=== PATIENT | female | born 1965 | race American Indian/Alaskan Native ===

== ENCOUNTER 2016-08-28 23:38 | Emergency (ER) | payer MEDICAID, OTHER ==
--- NOTE | 2016-08-29 00:13 | Emergency Department Report ---
ED General Adult HPI - General Chief complaint: Pain General Stated complaint: LEG EDEMA Time Seen by Provider: 08/28/16 23:53 Source: patient, EMS (ems notes not available at time of chart dictation), RN notes reviewed Limitations: Physical Limitation - History of Present Illness Initial comments: This is a 51-year-old female. She is previously unknown to me. Her primary care doctor is in [place]. She reports that she is visiting from [place]. She reports a history of breast cancer, status post bilateral mastectomy with clean margins, did not have chemotherapy or radiation. Reports a history of diabetes, pulmonary embolus, DVT. Was on systemic anticoagulation for one year. The patient presents to the ER complaining of chest pain. She also complains of bilateral lower extremity pain, redness and swelling. The chest pain is central. It does not radiate to the back, arms or neck. It is associated with shortness of breath, nausea, diaphoresis, no vomiting. It started 2 hours prior to arrival. The patient also complains of bilateral lower extremity redness, pain and swelling. The pain is sharp. It increases with palpation. It decreases with rest. No fevers. No chills. Positive anxiety. -: Gradual Location: chest, left, right, lower extremity Quality: aching Consistency: constant Improves with: rest Worsens with: movement Associated Symptoms: chest pain, loss of appetite, nausea/vomiting, shortness of breath, weakness - Related Data Home Medications Medication Instructions Recorded Confirmed Last Taken Atenolol [Tenormin] 50 mg PO BID 08/29/16 08/29/16 Unknown Budesoni/Formoterol 80-4.5(Nf) 2 puff IH BID 08/29/16 08/29/16 Unknown [Symbicort 80-4.5 (Nf)] Furosemide [Lasix TAB] 40 mg PO QDAY 08/29/16 08/29/16 Unknown Hydroxyzine HCl 25 mg PO QHS 08/29/16 08/29/16 Unknown Insulin Lispro [HumaLOG VIAL] See Protocol SQ PC 08/29/16 08/29/16 Unknown LORazepam [Ativan] 2 mg PO TID 08/29/16 08/29/16 Unknown Losartan [Cozaar] 100 mg PO DAILY 08/29/16 08/29/16 Unknown Tiotropium [Spiriva] 18 mcg IH QDAY 08/29/16 08/29/16 Unknown glipiZIDE 1 PO DAILY 08/29/16 Unknown Previous Rx's Medication Instructions Recorded Last Taken Type Clindamycin [Clindamycin CAP] 300 mg PO Q6H #40 capsule 08/29/16 Unknown Rx Enoxaparin [Lovenox] 120 mg SQ Q12HR #20 syringe 08/29/16 Unknown Rx Allergies Allergy/AdvReac Type Severity Reaction Status Date / Time Penicillins Allergy Intermediate Itching Verified 08/29/16 01:19 erythromycin base Allergy Itching Verified 08/29/16 03:37 metoclopramide HCl AdvReac Unknown Verified 08/29/16 03:37 [From Reglan] ondansetron HCl AdvReac Unknown Verified 08/29/16 03:37 [From Zofran (as hydrochloride)] prochlorperazine AdvReac Unknown Verified 08/29/16 03:37 [From Compazine] prochlorperazine edisylate AdvReac Unknown Verified 08/29/16 03:37 [From Compazine] prochlorperazine maleate AdvReac Unknown Verified 08/29/16 03:37 [From Compazine] rivaroxaban [From Xarelto] AdvReac Unknown Verified 08/29/16 03:37 ED Review of Systems ROS: Stated complaint: LEG EDEMA Other details as noted in HPI Constitutional: malaise. denies: fever Eyes: denies: vision change ENT: denies: epistaxis Respiratory: see HPI Cardiovascular: chest pain Gastrointestinal: as per HPI Genitourinary: as per HPI Musculoskeletal: arthralgia, myalgia Skin: as per HPI Neurological: weakness Psychiatric: anxiety ED Past Medical Hx - Medications Home Medications: Home Medications Medication Instructions Recorded Confirmed Last Taken Type Atenolol [Tenormin] 50 mg PO BID 08/29/16 08/29/16 Unknown History Budesoni/Formoterol 80-4.5(Nf) 2 puff IH BID 08/29/16 08/29/16 Unknown History [Symbicort 80-4.5 (Nf)] Clindamycin [Clindamycin CAP] 300 mg PO Q6H #40 capsule 08/29/16 Unknown Rx Enoxaparin [Lovenox] 120 mg SQ Q12HR #20 syringe 08/29/16 Unknown Rx Furosemide [Lasix TAB] 40 mg PO QDAY 08/29/16 08/29/16 Unknown History Hydroxyzine HCl 25 mg PO QHS 08/29/16 08/29/16 Unknown History Insulin Lispro [HumaLOG VIAL] See Protocol SQ PC 08/29/16 08/29/16 Unknown History LORazepam [Ativan] 2 mg PO TID 08/29/16 08/29/16 Unknown History Losartan [Cozaar] 100 mg PO DAILY 08/29/16 08/29/16 Unknown History Tiotropium [Spiriva] 18 mcg IH QDAY 08/29/16 08/29/16 Unknown History glipiZIDE 1 PO DAILY 08/29/16 Unknown History ED Physical Exam - General Limitations: Physical Limitation, Other (bilateral lower extremities are red. Redness is more prominent in the left lower extremity. It is tender. There is a ascending erythema noted on the right medial lower extremity. The compartments are soft. 2+ pulses noted in 4 extremities) General appearance: alert, anxious, obese - Head Head exam: Present: atraumatic, normocephalic - Eye Eye exam: Present: normal appearance, EOMI. Absent: nystagmus - ENT ENT exam: Present: normal exam, normal orophraynx, mucous membranes moist, normal external ear exam - Neck Neck exam: Present: normal inspection, full ROM. Absent: tenderness, meningismus - Respiratory Respiratory exam: Present: normal lung sounds bilaterally, chest wall tenderness. Absent: respiratory distress, wheezes, rales, rhonchi, stridor - Cardiovascular Cardiovascular Exam: Present: regular rate, normal rhythm, normal heart sounds. Absent: bradycardia, tachycardia, irregular rhythm, systolic murmur, diastolic murmur, rubs, gallop - GI/Abdominal GI/Abdominal exam: Present: soft, normal bowel sounds. Absent: distended, tenderness, guarding, rebound, rigid, pulsatile mass - Extremities Exam Extremities exam: Present: normal inspection, tenderness, normal capillary refill, pedal edema, calf tenderness - Back Exam Back exam: Present: normal inspection, full ROM. Absent: tenderness, CVA tenderness (R), CVA tenderness (L), muscle spasm, paraspinal tenderness, vertebral tenderness - Neurological Exam Neurological exam: Present: alert, oriented X3, other (Extraocular movements intact. Tongue midline. No facial droop. Facial sensation intact to light touch in the V1, V2, V3 distribution bilaterally. 5 and 5 strength in 4 extremities.. Sensation is intact to light touch in 4 extremities.). Absent: motor sensory deficit - Psychiatric Psychiatric exam: Present: anxious - Skin Skin exam: Present: warm, rash, erythema ED Course Vital Signs 08/28/16 08/28/16 08/28/16 23:38 23:41 23:45 Temperature 97.8 F Pulse Rate 98 H Respiratory 14 16 Rate Blood Pressure 114/63 Blood Pressure 114/63 [Right] O2 Sat by Pulse 100 100 98 Oximetry 08/29/16 08/29/16 08/29/16 00:00 00:30 00:50 Temperature Pulse Rate Respiratory 15 18 16 Rate Blood Pressure 114/63 Blood Pressure [Right] O2 Sat by Pulse 100 100 Oximetry 08/29/16 08/29/16 08/29/16 01:00 01:16 01:25 Temperature Pulse Rate 108 H 108 H Respiratory 19 26 H Rate Blood Pressure 114/63 114/63 114/63 Blood Pressure [Right] O2 Sat by Pulse 100 Oximetry 08/29/16 08/29/16 08/29/16 01:30 01:45 02:00 Temperature Pulse Rate 112 H 109 H Respiratory 21 38 H 24 Rate Blood Pressure 107/48 122/70 114/73 Blood Pressure [Right] O2 Sat by Pulse 100 100 100 Oximetry 08/29/16 08/29/16 08/29/16 02:15 02:30 02:45 Temperature Pulse Rate 109 H Respiratory 30 H 27 H 20 Rate Blood Pressure 108/75 114/70 109/72 Blood Pressure [Right] O2 Sat by Pulse 100 98 99 Oximetry 08/29/16 08/29/16 08/29/16 03:00 03:15 03:30 Temperature Pulse Rate 109 H Respiratory 16 26 H Rate Blood Pressure 108/71 117/75 111/75 Blood Pressure [Right] O2 Sat by Pulse 99 100 97 Oximetry 08/29/16 08/29/16 08/29/16 03:45 04:00 04:46 Temperature Pulse Rate 110 H 115 H 114 H Respiratory 25 H 28 H 16 Rate Blood Pressure 115/77 120/84 115/77 Blood Pressure [Right] O2 Sat by Pulse 98 98 97 Oximetry 08/29/16 08/29/16 08/29/16 05:00 05:15 05:30 Temperature Pulse Rate 105 H 105 H Respiratory 24 23 18 Rate Blood Pressure 118/67 118/69 119/59 Blood Pressure [Right] O2 Sat by Pulse 96 95 94 Oximetry 08/29/16 08/29/16 05:45 06:00 Temperature Pulse Rate 103 H Respiratory 21 23 Rate Blood Pressure 126/70 126/70 Blood Pressure [Right] O2 Sat by Pulse 95 99 Oximetry - Reevaluation(s) Reevaluation #1: 08/29/16 02:22 differential diagnosis: Cellulitis, lymphangitis, DVT, pneumonia , acute coronary syndrome, pulmonary embolus Reevaluation #2: 08/29/16 05:55 CT scan of the chest is negative for pulmonary embolus. Neoplasm in the liver is suggested. I will defer to the inpatient team to further evaluate this. Reevaluation #3: 08/29/16 06:23 patient is now going to sign out AGAINST MEDICAL ADVICE. The risks of leaving, including , disability, paralysis, permanent loss of quality of life are discussed with the patient. The patient is alert and oriented 3, she exhibits decision-making capacity, and she is free from distracting injury. She is able to articulate the risks in her own words. Patient will be discharged with antibiotics, clindamycin, and Lovenox. Instructed to follow up as soon as possible, or to return to the ER after when she changes her mind. The Hospital physician is informed. The AMA conversation was witnessed by nurse HUMBERTO ANDREA - TAMIKO/Peripheral Line Neck L Time Out Performed: Yes Indications: nurses unable to establis Skin Cleansed in Sterile Fashion: Yes Size: 20 Dressing Placed: Tegaderm Patient Tolerated Procedure: well ED Medical Decision Making - Lab Data Result diagrams: 08/29/16 00:34 08/29/16 00:34 Vital Signs 08/28/16 08/28/16 08/29/16 23:38 23:41 00:00 Temperature 97.8 F Pulse Rate 98 H Respiratory 14 15 Rate Blood Pressure 114/63 Blood Pressure 114/63 [Right] O2 Sat by Pulse 100 100 100 Oximetry 08/29/16 08/29/16 08/29/16 00:30 00:50 01:00 Temperature Pulse Rate Respiratory 18 16 19 Rate Blood Pressure 114/63 114/63 Blood Pressure [Right] O2 Sat by Pulse 100 100 Oximetry 0608/29/16 08/29/16 01:16 01:25 01:30 Temperature Pulse Rate 108 H 108 H 112 H Respiratory 26 H 21 Rate Blood Pressure 114/63 114/63 107/48 Blood Pressure [Right] O2 Sat by Pulse 100 Oximetry 08/29/16 08/29/16 01:45 02:00 Temperature Pulse Rate 109 H Respiratory 38 H 24 Rate Blood Pressure 122/70 114/73 Blood Pressure [Right] O2 Sat by Pulse 100 100 Oximetry Lab Results 08/29/16 08/29/16 08/29/16 Range/Units 00:34 00:34 00:34 WBC 9.1 (4.5-11.0) K/mm3 RBC 4.61 (3.65-5.03) M/mm3 Hgb 12.0 (10.1-14.3) gm/dl Hct 36.6 (30.3-42.9) % MCV 79 (79-97) fl MCH 26 L (28-32) pg MCHC 33 (30-34) % RDW 16.1 H (13.2-15.2) % Plt Count 287 (140-440) K/mm3 Lymph % (Auto) 27.5 (13.4-35.0) % Kleberg % (Auto) 5.8 (0.0-7.3) % Eos % (Auto) 3.8 (0.0-4.3) % Baso % (Auto) 1.0 (0.0-1.8) % Lymph # 2.5 (1.2-5.4) K/mm3 Kleberg # 0.5 (0.0-0.8) K/mm3 Eos # 0.3 (0.0-0.4) K/mm3 Baso # 0.1 (0.0-0.1) K/mm3 Seg Neutrophils % 61.9 (40.0-70.0) % Seg Neutrophils # 5.6 (1.8-7.7) K/mm3 Sodium 139 (137-145) mmol/L Potassium 3.4 L (3.6-5.0) mmol/L Chloride 99.8 (98-107) mmol/L Carbon Dioxide 22 (22-30) mmol/L Anion Gap 21 mmol/L BUN 9 (7-17) mg/dL Creatinine 1.0 (0.7-1.2) mg/dL Estimated GFR > 60 ml/min BUN/Creatinine Ratio 9.00 % Glucose 200 H (65-100) mg/dL Lactic Acid 2.70 H* (0.7-2.0) mmol/L Calcium 8.8 (8.4-10.2) mg/dL Total Creatine Kinase 53 (30-135) units/L Troponin T < 0.010 (0.00-0.029) ng/mL NT-Pro-B Natriuret Pep 27.95 (0-900) pg/mL HCG, Quant (0-4) mIU/mL 08/29/16 Range/Units 00:34 WBC (4.5-11.0) K/mm3 RBC (3.65-5.03) M/mm3 Hgb (10.1-14.3) gm/dl Hct (30.3-42.9) % MCV (79-97) fl MCH (28-32) pg MCHC (30-34) % RDW (13.2-15.2) % Plt Count (140-440) K/mm3 Lymph % (Auto) (13.4-35.0) % Kleberg % (Auto) (0.0-7.3) % Eos % (Auto) (0.0-4.3) % Baso % (Auto) (0.0-1.8) % Lymph # (1.2-5.4) K/mm3 Kleberg # (0.0-0.8) K/mm3 Eos # (0.0-0.4) K/mm3 Baso # (0.0-0.1) K/mm3 Seg Neutrophils % (40.0-70.0) % Seg Neutrophils # (1.8-7.7) K/mm3 Sodium (137-145) mmol/L Potassium (3.6-5.0) mmol/L Chloride (98-107) mmol/L Carbon Dioxide (22-30) mmol/L Anion Gap mmol/L BUN (7-17) mg/dL Creatinine (0.7-1.2) mg/dL Estimated GFR ml/min BUN/Creatinine Ratio % Glucose (65-100) mg/dL Lactic Acid (0.7-2.0) mmol/L Calcium (8.4-10.2) mg/dL Total Creatine Kinase (30-135) units/L Troponin T (0.00-0.029) ng/mL NT-Pro-B Natriuret Pep (0-900) pg/mL HCG, Quant < 2 (0-4) mIU/mL - EKG Data -: EKG Interpreted by Me EKG shows normal: sinus rhythm Rate: normal - EKG Data When compared to previous EKG there are: previous EKG unavailable 08/29/16 02:25 sinus tachycardia, 107 beats per minute, normal intervals, normal axis, not consistent with STEMI, no prior EKG available. - Radiology Data Radiology results: image reviewed interpreted by me: X-ray the chest: Right lower lobe infiltrate versus atelectasis. - Medical Decision Making Differential diagnosis: Cellulitis, lymphangitis, pulmonary embolus, acute coronary syndrome assessment and plan: 51-year-old female with leg pain, swelling, redness, chest pain. She will be treated empirically for DVT with Lovenox, pulmonary embolus with Lovenox, clindamycin for possible skin soft tissue infection. Case is discussed with the Hospital physician, Dr. Dickey, who accepts the patient to her service. D-dimer is pending. Of note, there is delay in disposition secondary to the laboratory having technical issues with their instruments and prolonged Of time to result d-dimer. Critical care attestation.: If time is entered above; I have spent that time in minutes in the direct care of this critically ill patient, excluding procedure time. ED Disposition Clinical Impression: Chest pain, Leg pain Disposition: LEFT AGAINST MEDICAL ADVICE Is pt being admited?: No Does the pt Need Aspirin: Yes Condition: Undetermined Instructions: Chest Pain (ED) Prescriptions: Clindamycin [Clindamycin CAP] 300 mg PO Q6H #40 capsule Enoxaparin [Lovenox] 120 mg SQ Q12HR #20 syringe Referrals: PRIMARY CARE, [Primary Care Provider] - 3-5 Days
[2016-08-29] MEDS ORDERED: TYLENOL #3 PO ONE (00:31)
[2016-08-29] MEDS ORDERED: NITROSTAT SL ONE (00:31)
[2016-08-29] MEDS ORDERED: CLEOCIN 600 MG/50 mL 600 MG/50 ML BAG IV ONE (00:31)
[2016-08-29 00:56] LABS: Eosinophils % (Auto) 3.8 % (0.0-4.3); Hematocrit 36.6 % (30.3-42.9); Mean Corpuscular HGB Conc 33 % (30-34); Mean Corpuscular Hemoglobin 26 pg (28-32); Mean Corpuscular Volume 79 fl (79-97); Platelet Count 287 K/mm3 (140-440); Red Blood Count 4.61 M/mm3 (3.65-5.03); Red Cell Distribution Width 16.1 % (13.2-15.2); White Blood Count 9.1 K/mm3 (4.5-11.0)
[2016-08-29 01:12] LABS: Anion Gap 21 mmol/L; Blood Urea Nitrogen 9 mg/dL (7-17); Calcium 8.8 mg/dL (8.4-10.2); Carbon Dioxide 22 mmol/L (22-30); Chloride 99.8 mmol/L (98-107); Creatine Kinase 53 units/L (30-135); Glucose 200 mg/dL (65-100); Potassium 3.4 mmol/L (3.6-5.0); Sodium 139 mmol/L (137-145)
[2016-08-29] MEDS ORDERED: ATIVAN IV ONE (01:19)
[2016-08-29] MEDS ORDERED: LOVENOX SUB-Q STA (02:22)
[2016-08-29] MEDS ORDERED: BABY ASPIRIN PO ONE (02:28)
[2016-08-29 02:45] LABS: INR 0.94 (0.87-1.13)
--- NOTE | 2016-08-29 03:03 | XRay Report ---
FINAL REPORT PROCEDURE: XR CHEST 1V AP TECHNIQUE: Chest radiograph anteroposterior view. CPT 82488 HISTORY: cp COMPARISON: No prior studies are available for comparison. FINDINGS: Heart: Normal. Mediastinum/Vessels: Normal. Lungs/Pleural space: Normal. Bony thorax: No acute osseous abnormality. Life support devices: None. IMPRESSION: No acute cardiopulmonary abnormality.
[2016-08-29] MEDS: LOVENOX SUB-Q ONE ×2 (03:26→03:28)
--- NOTE | 2016-08-29 05:39 | Cat Scan Report ---
FINAL REPORT PROCEDURE: CT ANGIO CHEST TECHNIQUE: Computerized axial tomographic angiography of the chest and pulmonary arteries was performed after the IV injection of iodinated nonionic contrast. The image data was postprocessed using maximum intensity projection (MIP) and 2-dimensional multiplanar reformatted (MPR) techniques. The examination is specifically tailored to the evaluation of the pulmonary arteries per clinical request. HISTORY: Short of breath 786.09, chest pain 786.50, cp hx of pe COMPARISON: No prior studies are available for comparison. FINDINGS: Heart and pericardium: Normal. Thoracic aorta: There is no thoracic aortic aneurysm or dissection.. Pulmonary vasculature: No pulmonary embolism is identified. There is suboptimal opacification of the distal pulmonary artery branches.. Lymph nodes: No enlarged thoracic lymph nodes. Lungs: Normal. Pleural space: No effusion, thickening, or pneumothorax. Musculoskeletal structures: No significant abnormality. Upper abdominal structures: Liver is enlarged and fatty. There is a hypodense mass in the left lobe measuring 3 x 3.5 centimeters. There is displacement of surrounding vessels. Neoplasm cannot be excluded.. IMPRESSION: There is no thoracic aortic aneurysm or dissection.. No pulmonary embolism is identified. There is suboptimal opacification of the distal pulmonary artery branches.. Liver is enlarged and fatty. There is a hypodense mass in the left lobe measuring 3 x 3.5 centimeters. There is displacement of surrounding vessels. Neoplasm cannot be excluded.. .
--- NOTE | 2016-08-29 05:40 | History and Physical Report ---
History of Present Illness Date of examination: 08/29/16 History of present illness: This is a 51-year-old female. She is previously unknown to me. Her primary care doctor is in [place]. She reports that she is visiting from [place]. She reports a history of breast cancer, status post bilateral mastectomy with clean margins, did not have chemotherapy or radiation. Reports a history of diabetes, pulmonary embolus, DVT. Was on systemic anticoagulation for one year. The patient presents to the ER complaining of chest pain. She also complains of bilateral lower extremity pain, redness and swelling. The chest pain is central. It does not radiate to the back, arms or neck. It is associated with shortness of breath, nausea, diaphoresis, no vomiting. It started 2 hours prior to arrival. The patient also complains of bilateral lower extremity redness, pain and swelling. The pain is sharp. It increases with palpation. It decreases with rest. No fevers. No chills. Positive anxiety. Past medical History: h/o Past surgical History: s/p Social History: Lives with family, denies any smoking, drinking and elicit drug abuse. Family History: Significant for Review of System: Constitutional: no fever, no chills, no weight loss Ears, eyes, nose, mouth and throat: no nasal congestion, no nasal discharge, no sinus pressure, no vision change, no red eye. Neck: No neck pain or rigidity. Cardiovascular: No chest pain, no orthopnea, no palpitations, no leg swelling Respiratory: No shortness of breath, no cough, no congestion, no wheezing Gastrointestinal: no abdominal pain, no nausea, no vomiting Genitourinary : no dysuria, no hematuria Musculoskeletal: no joint swelling or muscle ache Integumentary: no rash, no pruritis Neurological: no parathesias, no numbness, no tingling Endocrine: no cold or heat intolerance, no polyuria or polydipsia Hematologic/Lymphatic: no easy bruising, no easy bleeding, no gland swelling Allergic/Immunologic: no urticaria, no angioedema. Medications and Allergies Allergies Allergy/AdvReac Type Severity Reaction Status Date / Time Penicillins Allergy Intermediate Itching Verified 08/29/16 01:19 erythromycin base Allergy Itching Verified 08/29/16 03:37 metoclopramide HCl AdvReac Unknown Verified 08/29/16 03:37 [From Reglan] ondansetron HCl AdvReac Unknown Verified 08/29/16 03:37 [From Zofran (as hydrochloride)] prochlorperazine AdvReac Unknown Verified 08/29/16 03:37 [From Compazine] prochlorperazine edisylate AdvReac Unknown Verified 08/29/16 03:37 [From Compazine] prochlorperazine maleate AdvReac Unknown Verified 08/29/16 03:37 [From Compazine] rivaroxaban [From Xarelto] AdvReac Unknown Verified 08/29/16 03:37 Home Medications Medication Instructions Recorded Confirmed Last Taken Type Atenolol [Tenormin] 50 mg PO BID 08/29/16 08/29/16 Unknown History Budesoni/Formoterol 80-4.5(Nf) 2 puff IH BID 08/29/16 08/29/16 Unknown History [Symbicort 80-4.5 (Nf)] Furosemide [Lasix TAB] 40 mg PO QDAY 08/29/16 08/29/16 Unknown History Hydroxyzine HCl 25 mg PO QHS 08/29/16 08/29/16 Unknown History Insulin Lispro [HumaLOG VIAL] See Protocol SQ PC 08/29/16 08/29/16 Unknown History LORazepam [Ativan] 2 mg PO TID 08/29/16 08/29/16 Unknown History Losartan [Cozaar] 100 mg PO DAILY 08/29/16 08/29/16 Unknown History Tiotropium [Spiriva] 18 mcg IH QDAY 08/29/16 08/29/16 Unknown History glipiZIDE 1 PO DAILY 08/29/16 Unknown History Active Meds: Active Medications Atenolol (Tenormin) 50 mg PO BID MOIZ Furosemide (Lasix) 40 mg PO QDAY MOIZ Hydroxyzine HCl (Atarax) 25 mg PO QHS MOIZ Lorazepam (Ativan) 2 mg PO TID MOIZ Miscellaneous Medication (Budesoni/Formoterol 80-4.5(Nf)) 2 puff IH BID MOIZ Miscellaneous Medication (Losartan [Cozaar]) 100 mg PO DAILY MOIZ Tiotropium Empire (Spiriva) puff IH QDAY MOIZ Exam - Physical Exam Narrative exam: GENERAL: This is well-developed well-nourished lying on bed appeared to be in no discomfort. HEENT: Normocephalic. Atraumatic. Extraocular motions are intact. No conjunctival congestion or icterus. Patient has moist mucous membranes. External auditory canal and nares patent bilaterally. NECK: Supple. Trachea midline. No JVD, thyromagaly or lymphadenopathy. CHEST/LUNGS: Clear to auscultated bilaterally. There is no respiratory distress noted, breathing nonlabored. No wheezes crackles or rhonchi. HEART/CARDIOVASCULAR: Regular in rate and rhythm. PMI at the apex. There is no gallop rub or murmur. ABDOMEN: Abdomen is soft, nontender. Patient has normal bowel sounds. There is no abdominal distention. No organomagaly or rigidity. SKIN: There is no rash, no erythrema. There is no diaphoresis. Warm and dry. NEUROLOGY: The patient is awake, alert, and oriented. The patient is cooperative. The patient has normal speech. No focal motor deficit. MUSCULOSKELETAL: No joint effusion or tenderness. Muscle strength equal bilaterally. No muscle wasting. EXTRIMITY: No edema, cyanosis or clubbing. PSYCH: No depression or anxiety noted. Cooperative. - Constitutional Vitals: Temp Pulse Resp BP Pulse Ox 97.8 F 105 H 24 118/67 96 08/28/16 23:41 08/29/16 05:00 08/29/16 05:00 08/29/16 05:00 08/29/16 05:00 Results - Labs CBC & Chem 7: 08/29/16 00:34 08/29/16 00:34 Labs: Abnormal lab results 08/29/16 08/29/16 08/29/16 Range/Units 00:34 00:34 00:34 MCH 26 L (28-32) pg RDW 16.1 H (13.2-15.2) % D-Dimer 944.14 H (0-234) ng/mlDDU Potassium 3.4 L (3.6-5.0) mmol/L Glucose 200 H (65-100) mg/dL Lactic Acid (0.7-2.0) mmol/L 08/29/16 Range/Units 00:34 MCH (28-32) pg RDW (13.2-15.2) % D-Dimer (0-234) ng/mlDDU Potassium (3.6-5.0) mmol/L Glucose (65-100) mg/dL Lactic Acid 2.70 H* (0.7-2.0) mmol/L - Imaging and Cardiology CT scan - chest: pending
[2016-08-29 05:54] VITALS: BP 126/70
[2016-08-29] MEDS ORDERED: CLEOCIN 600 MG/50 mL 600 MG/50 ML BAG IV SCH (06:00)
--- NOTE | 2016-08-29 06:42 | Admit Criteria Form ---
Admission Criteria Documentation: CARDIOLOGY GRG Clinical Indications for Admission to Inpatient Care ( Place 'X' for any and all applicable criteria): Hospital admission is needed for appropriate care of the patient because of ANY ONE of the following (1): [ ] I. Hemodynamic instability as indicated by ALL of the following (1)(2)(3) (4)(5) [ ]a) Vital signs or other findings not as expected for chronic patient condition or baseline [ ]b) Instability indicated by ANY ONE of the following: [ ]i) Hypotension [ ]ii) Symptomatic Tachycardia unresponsive to treatment ( e.g., analgesia, fluids, sedation as indicated) [ ]iii) Inadequate perfusion indicated by ANY ONE of the following: [ ] 1) Lactic acidosis (> 2 mmol/L) [ ] 2) New abnormal capillary refill (> 3 seconds) [ ] 3) Reduced urine output [ ] 4) New altered mental status [ ]iv) Orthostatic vital sign changes unresponsive to treatment (e.g., fluids) [ ]v) IV inotropic or vasopressor medication required to maintain adequate blood pressure or perfusion [ ] II. Severe heart failure as indicated by ANY ONE of the following(17)(18) [ ]a) Respiratory distress [ ]b) Hypotension [ ]c) Anasarca (refractory to outpatient therapy) [ ]d) Cardiac arrhythmias of immediate concern [ ]e) Myocardial ischemia [ ] III. Cardiac arrhythmias or findings of immediate concern indicated by ANY ONE of the following (19)(20): [ ] a) Heart rhythms that are inherently dangerous or unstable indicated by ANY ONE of the following (21)(22)(23): [ ] i) Resuscitated ventricular fibrillation or cardiac arrest [ ] ii) Ventricular escape rhythm [ ] iii) Sustained ventricular tachycardia (30 seconds or more of ventricular rhythm at greater than 100 beats per minute) [ ] iv) Nonsustained ventricular tachycardia and ANY ONE of the following: [ ] 1) Suspected cardiac ischemia as cause or consequence of ventricular tachycardia [ ] 2) In setting of acute myocarditis [ ] b) Unstable cardiac conduction defects indicated by ANY ONE of the following(23)(24)(25) [ ] i) Type II second-degree atrioventricular block [ ]ii) Third-degree atrioventricular block [ ]iii) New-onset left bundle branch block with suspected myocardial ischemia [ ]c) Any heart rhythm and ANY ONE of the following (21)(22)(26)(27) (28) [ ] i) Continuous long-term ECG monitoring needed (e.g., initiation of drug requiring monitoring for more than 24 hours) [ ] ii) Patient has automatic implanted cardioverter defibrillator that is repeatedly firing, malfunctioning, or in need of immediate adjustment of settings beyond the scope of ambulatory or observation care [ ]d) Heart rhythms of concern due to ANY ONE of the following: [ ] i) Hypotension [ ] ii) Respiratory distress [ ] iii) Association with other significant symptoms (e.g., bradycardia with syncope or ongoing dizziness, supraventricular tachycardia with chest pain (14)(15)(17) [ ] IV. Monitoring for cardiac contusion beyond the scope of observation care needed [A](30)(31)(32) [ ] V. Surgical or device complication (e.g., valve replacement complication , pacemaker dysfunction) (35)(41)(44)(45)(46) [ ] . Inpatient palliative care needed. [B](49) Also use Inpatient Palliative Care Criteria [ ] VII. Nonbacterial thrombotic (marantic) endocarditis (36)(43)(47)(48) [X ] VIII. Cardiology condition, symptom, or finding for which emergency and observation care has failed or are not considered appropriate. [ ] IX. Acute valvular disease requiring inpatient as indicated by ANY ONE of the following (41) [ ]a) Acute valvular regurgitation (42) [ ]b) Noninfectious valvulitis (43) [ ]c) Obstructive valve thrombosis [ ]d) Paravalvular leak [ ]e) Other significant valvular disorder remaining after emergency or observation level of care (as appropriate) [ ]X. Pericardial disease requiring inpatient treatment as indicated by ANY ONE of the following (33)(34)(35)(36)(37) [ ]a) Suspected tamponade (38)(39)(40) [ ]b) Hemopericardium [ ]c) Other significant pericardial disorder remaining after emergency or observation level of care (as appropriate) [ ] XI. Cardiac ischemia beyond scope of emergency and observation care. [ ] XII. Hypertension requiring inpatient treatment as indicated by ANY ONE of the following (6)(7)(8) [ ]a) SBP greater than 220 mm Hg or DBP greater than 120 mmHg despite treatment [ ]b) SBP greater than 140 mm Hg or DBP greater than 100 mm Hg with evidence of acute end organ damage as indicated by ANY ONE of the following [ ] i) Altered mental status [ ] ii) Acute renal failure as indicated by new onset of ANY ONE of the following (9)(10)(11)(12)(13) [ ]1) 3-fold rise in serum creatinine from baseline [ ]2) Serum creatinine greater than 4 mg/dL ( 354 micromoles/L) with acute rise greater than 0.5 mg/dL (44.2 micromoles/L) [ ]3) Reduction of more than 75% in estimated glomerular filtration rate from baseline [ ]4) Estimated glomerular filtration rate less than 35 mL/min/1.73m2 (0.59 mL/sec/1.73m2) in child up to 18 years of age [ ]5) Cessation of urine output indicated by ALL of the following [ ]A. Adequate volume status [ ]B. Inadequate urine output as indicated by ANY ONE of the following [ ]a. Urine output less than 0.3 mL/kg/hr for 24 hours [ ]b. Anuria (urine output less than 0.1 mL/kg/hr) for 12 hours [ ] iii) Aortic dissection [ ] iv) Myocardial Ischemia [ ] v) Left ventricular heart failure [ ]vi) Retinal Hemorrhage [ ]vii) Other significant finding [ ]c) Hypertension in child requiring inpatient treatment as indicated by ALL of the following(14)(15)(16) [ ] i) Outpatient treatment not effective, not available, or not appropriate [ ]ii) SBP or DBP greater than 95th percentile for age [ ]iii) Evidence of acute end organ damage as indicated by ANY ONE of the following [ ]1) Altered mental status [ ]2) Acute renal failure as indicated by new onset of ANY ONE of the following(9)(10)(11)(12)(13) [ ]A. 3-fold rise in serum creatinine from baseline [ ]B. Serum creatinine greater than 4 mg/dL (354 micromoles/L) with acute rise greater than 0.5 mg/dL (44.2 micromoles/L) [ ]C. Reduction of more than 75% in estimated glomerular filtration rate from baseline [ ]D. Estimated glomerular filtration rate less than 35 mL/min/1.73m2 (0.59 mL/sec/1.73m2) in child up to 18 years of age [ ]E. Cessation of urine output indicated by ALL of the following [ ]a. Adequate volume status [ ]b. Inadequate urine output as indicated by ANY ONE of the following [ ]i) Urine output less than 0.3 mL/kg/hr for 24 hours [ ]ii) Anuria ( urine output less than 0.1 mL/kg/hr) for 12 hours [ ]3) Severe headache [ ]4) Visual disturbance [ ]5) Retinal hemorrhage [ ]6) Other significant finding [ ]XIII. Complications of transplanted heart indicated by ANY ONE of the following(61): [ ]a) Acute graft rejection requiring inpatient management (eg, intravenous immunosuppression)(62)(63) [ ]b) Acute graft heart failure indicated by ANY ONE of the following(64): [ ]i) Hemodynamic instability [ ]ii) Cardiac arrhythmias of immediate concern [ ]iii) Pulmonary edema that is very severe (eg, mechanical ventilation needed, imminent or likely, need for 100% oxygen to keep oxygen saturation above 90%) [ ]iv) Pulmonary edema that is persistent as indicated by ALL of the following: [ ]1) New need for oxygen therapy to keep oxygen saturation above 90% (or increased FiO2 need from baseline) [ ]2) Has not improved sufficiently with emergency department or observation care IV diuretics or other heart failure treatments[E] [ ]v) Altered mental status that is severe or persistent [ ]vi) Increased creatinine (new on laboratory test) with reduction of more than 50% in estimated glomerular filtration rate from baseline [ ]vii) Progressively (ongoing) rising creatinine (known from past laboratory test) with reduction of more than 25% in estimated glomerular filtration rate from baseline [ ]viii) Acute renal failure [ ]ix) Acute peripheral ischemia (eg, examination shows pulseless, cool, mottled, or cyanotic extremity) [ ]x) Pulmonary artery catheter monitoring needed [ ]xi) Other sign or symptom of heart failure requiring inpatient treatment (ie, too severe or not responsive to outpatient and observation care treatment) [ ]c) Infection requiring inpatient management (eg, Hemodynamic instability, need for intravenous antimicrobial treatment)(66)(67)(68)(69)(70) [ ]d) Cardiac allograft vasculopathy requiring inpatient management ( eg evidence of cardiac ischemia)(71) [ ]e) Other complication of transplanted heart (eg, stroke, severe pulmonary hypertension, severe valvular dysfunction) requiring inpatient management(72) The original [facility] [employer] content created by [facility] has been revised. The portions of the content which have been revised are identified through the use of italic text or in bold, and [facility] has neither reviewed nor approved the modified material. All other unmodified content is copyright [facility] [employer]. Please see references footnoted in the original [facility] [employer] edition 2016 Admission Criteria Met: Yes
[2016-08-29] MEDS ORDERED: BROVANA NEBU IH SCH (08:00)
[2016-08-29] MEDS ORDERED: ATIVAN PO SCH (08:00)
[2016-08-29] MEDS ORDERED: PULMICORT IH SCH (08:00)
[2016-08-29] MEDS ORDERED: NON-FORMULARY (Budesoni/Formoterol 80-4.5(Nf) 2 PUFF) IH SCH (10:00)
[2016-08-29] MEDS ORDERED: COZAAR PO SCH (10:00)
[2016-08-29] MEDS ORDERED: LASIX PO SCH (10:00)
[2016-08-29] MEDS ORDERED: TENORMIN PO SCH (10:00)
[2016-08-29] MEDS ORDERED: SPIRIVA IH SCH (10:00)
[2016-08-29] MEDS ORDERED: LOVENOX SUB-Q SCH (22:00)
[2016-08-29] MEDS ORDERED: ATARAX PO SCH (22:00)
== END 2016-08-29 06:15 | disposition left against medical advice (07) ==
LOC: ED 23:38 → UNDOADMIN 08-29 05:30 → 4A 08-29 05:30 → ED 08-29 06:15
DX: M79.604 Pain in right leg (principal); M79.605 Pain in left leg; R07.9 Chest pain, unspecified; Z88.0 Allergy status to penicillin; Z88.8 Allergy status to other drugs, medicaments and biological substances
CPT/HCPCS: 36415; 36569; 71010; 71275; 80048; 82140; 82550; 83880; 84484; 84702; 85025; 85379; 85610; 87040; 93005; 93010; 96365; 96372; 96375; 99285; J1650; J2060; Q9967

== ENCOUNTER 2018-10-30 20:08 | Emergency (ER) | payer MEDICAID | END 2018-10-30 20:35 | disposition left against medical advice (07) | LOC: ED 20:08 | DX: R42 Dizziness and giddiness (principal); J45.909 Unspecified asthma, uncomplicated; Z53.21 Procedure and treatment not carried out due to patient leaving prior to being seen by health care provider ==

== ENCOUNTER 2018-11-01 22:55 | Emergency (ER) | payer MEDICAID ==
[2018-11-01] MEDS ORDERED: MYLICON PO ONE (23:33)
[2018-11-01] MEDS ORDERED: CEPHULAC PO ONE (23:34)
--- NOTE | 2018-11-02 00:10 | Emergency Department Report ---
HPI - General Chief Complaint: Syncope Time Seen by Provider: 11/01/18 23:08 - HPI HPI: Room 22 The patient is a 53-year-old female presenting with chief complaint of syncope. The patient states she has finished using the commode her clothes back on and stood up which began feeling lightheaded, had palpitations and shortness of breath. The patient's station and has syncopal episode on the memory is waking up on the floor with her nephew standing over her. There is no reported seizure activity. Patient states she still feels lightheaded currently. Patient denied having chest pain. Location: [See above] Duration: [See above] Quality: [See above] Severity: [See above] Modifying factors: [see above] Context: [see above] Mode of transportation: [not driving] ED Past Medical Hx - Past Medical History Previous Medical History?: Yes Hx Hypertension: Yes Hx Diabetes: Yes Hx Deep Vein Thrombosis: Yes Hx Pulmonary Embolism: Yes Hx Seizures: Yes (no meds) Additional medical history: Braest CA, gastropheresis, stomach ulcer - Surgical History Past Surgical History?: Yes Hx Appendectomy: Yes Additional Surgical History: bilateral mastectomy, C-sectionx 3 - Social History Smoking Status: Never Smoker Substance Use Type: None (denies illicit drug use) - Medications Home Medications: Home Medications Medication Instructions Recorded Confirmed Last Taken Type Atenolol [Tenormin] 50 mg PO BID 08/29/16 08/29/16 Unknown History Budesoni/Formoterol 80-4.5(Nf) 2 puff IH BID 08/29/16 08/29/16 Unknown History [Symbicort 80-4.5 (Nf)] Clindamycin [Clindamycin CAP] 300 mg PO Q6H #40 capsule 08/29/16 Unknown Rx Enoxaparin [Lovenox] 120 mg SQ Q12HR #20 syringe 08/29/16 Unknown Rx Furosemide [Lasix TAB] 40 mg PO QDAY 08/29/16 08/29/16 Unknown History Insulin Lispro [HumaLOG VIAL] See Protocol SQ PC 08/29/16 08/29/16 Unknown History LORazepam [Ativan] 2 mg PO TID 08/29/16 08/29/16 Unknown History Losartan [Cozaar] 100 mg PO DAILY 06/02/17 06/02/17 Unknown History Tiotropium [Spiriva] 18 mcg IH QDAY 08/29/16 08/29/16 Unknown History glipiZIDE 1 PO DAILY 08/29/16 Unknown History hydrOXYzine HCl [Hydroxyzine HCl] 25 mg PO QHS 08/29/16 08/29/16 Unknown History ED Review of Systems ROS: Stated complaint: SYNCOPE Other details as noted in HPI Constitutional: no symptoms reported Eyes: denies: eye pain ENT: denies: throat pain Respiratory: shortness of breath Cardiovascular: palpitations. denies: chest pain Endocrine: no symptoms reported Gastrointestinal: constipation Genitourinary: denies: dysuria Musculoskeletal: denies: back pain Neurological: denies: headache Physical Exam - Physical Exam Vital Signs: Vital Signs 11/01/18 23:11 Temperature 98.8 F Pulse Rate 101 H Respiratory 21 Rate Blood Pressure 172/93 [Left] O2 Sat by Pulse 97 Oximetry Physical Exam: GENERAL: The patient is well-developed well-nourished female lying on stretcher not appearing to be in acute distress. [] HEENT: Normocephalic. Atraumatic. Extraocular motions are intact. Patient has moist mucous membranes. NECK: Supple. Trachea midline CHEST/LUNGS: Clear to auscultation. There is no respiratory distress noted. HEART/CARDIOVASCULAR: Regular. There is no tachycardia. There is no gallop rub or murmur. ABDOMEN: Abdomen is soft, nontender. Patient has normal bowel sounds. There is no abdominal distention. SKIN: There is no rash. There is no edema. There is no diaphoresis. NEURO: The patient is awake, alert, and oriented. The patient is cooperative. The patient has no focal neurologic deficits. The patient has normal speech. Cranial nerves II through XII grossly intact, no drift MUSCULOSKELETAL:There is no evidence of acute injury. ED Course Vital Signs 11/01/18 23:11 Temperature 98.8 F Pulse Rate 101 H Respiratory 21 Rate Blood Pressure 172/93 [Left] O2 Sat by Pulse 97 Oximetry ED Medical Decision Making - Lab Data Result diagrams: 11/02/18 00:35 11/02/18 00:35 Laboratory Tests 11/02/18 11/02/18 11/02/18 00:35 00:35 00:35 WBC 5.8 RBC 5.73 H Hgb 14.6 H Hct 45.0 H MCV 79 MCH 26 L MCHC 32 RDW 16.5 H Plt Count 258 Lymph % (Auto) 36.3 H Monroe % (Auto) 5.9 Eos % (Auto) 1.1 Baso % (Auto) 0.8 Lymph # 2.1 Monroe # 0.1 Eos # 0.0 Baso # 0.1 Seg Neutrophils % 55.9 Seg Neutrophils # 3.2 PT 14.3 INR 1.14 H APTT 31.4 Sodium 138 Potassium 4.2 Chloride 100.6 Carbon Dioxide 22 Anion Gap 20 BUN 7 Creatinine 0.8 Estimated GFR > 60 BUN/Creatinine Ratio 9 Glucose 334 H Calcium 9.9 Magnesium 2.10 Total Bilirubin 0.20 AST 18 ALT 22 Alkaline Phosphatase 140 H Total Creatine Kinase 75 CK-MB (CK-2) 1.0 CK-MB (CK-2) Rel Index 1.3 Troponin T < 0.010 NT-Pro-B Natriuret Pep 33.56 Total Protein 8.2 Albumin 4.1 Albumin/Globulin Ratio 1.0 - EKG Data -: EKG Interpreted by Me EKG shows normal: sinus rhythm Rate: normal - EKG Data When compared to previous EKG there are: previous EKG unavailable Interpretation: other (no ischemic changes seen) - Medical Decision Making I explained to the patient my concern for her presentation and my recommendation for admission to the hospital even if her studies returned normal. Patient verbalized understanding - Differential Diagnosis syncope, dysrhythmia, PE, ICH Critical care attestation.: If time is entered above; I have spent that time in minutes in the direct care of this critically ill patient, excluding procedure time. ED Disposition Clinical Impression: Syncope Disposition: DC-07 LEFT AGAINST MED ADVICE Is pt being admited?: Yes Does the pt Need Aspirin: No Condition: Undetermined Instructions: Syncope (ED) Referrals: SHILA TURK MD [Primary Care Provider] - 3-5 Days Forms: AMA Form
[2018-11-02 01:25] LABS: INR 1.14 (0.87-1.13)
[2018-11-02 01:26] LABS: Partial Thromboplastin Time 31.4 Sec. (24.2-36.6)
[2018-11-02 01:29] VITALS: BP 171/95
[2018-11-02 01:32] LABS: Hemoglobin 14.6 gm/dl (10.1-14.3); Lymphocytes % (Auto) 36.3 % (13.4-35.0); Mean Corpuscular HGB Conc 32 % (30-34); Mean Corpuscular Volume 79 fl (79-97); Mean Platelet Volume 7.8 fl (6-12); Monocytes % (Auto) 5.9 % (0.0-7.3); Platelet Count 258 K/mm3 (140-440); Red Blood Count 5.73 M/mm3 (3.65-5.03); Red Cell Distribution Width 16.5 % (13.2-15.2)
[2018-11-02 01:33] LABS: Basophils # (Auto) 0.1 K/mm3 (0.0-0.1); Basophils % (Auto) 0.8 % (0.0-1.8); Eosinophils % (Auto) 1.1 % (0.0-4.3); Lymphocytes # (Auto) 2.1 K/mm3 (1.2-5.4); Monocytes # (Auto) 0.1 K/mm3 (0.0-0.8)
[2018-11-02 01:51] LABS: Alanine Aminotransferase 22 units/L (7-56); Albumin 4.1 g/dL (3.9-5); BUN/Creatinine Ratio 9; Blood Urea Nitrogen 7 mg/dL (7-17); Calcium 9.9 mg/dL (8.4-10.2); Hemolysis Index 13
== END 2018-11-02 01:17 | disposition left against medical advice (07) ==
LOC: ED 22:55
DX: R55 Syncope and collapse (principal); I10 Essential (primary) hypertension; E11.9 Type 2 diabetes mellitus without complications; E11.43 Type 2 diabetes mellitus with diabetic autonomic (poly)neuropathy; K31.84 Gastroparesis; Z90.49 Acquired absence of other specified parts of digestive tract; Z86.718 Personal history of other venous thrombosis and embolism; Z86.711 Personal history of pulmonary embolism; Z85.3 Personal history of malignant neoplasm of breast; Z88.8 Allergy status to other drugs, medicaments and biological substances; Z90.13 Acquired absence of bilateral breasts and nipples; Z79.899 Other long term (current) drug therapy; Z88.0 Allergy status to penicillin; Z88.1 Allergy status to other antibiotic agents
CPT/HCPCS: 36415; 80053; 82550; 82553; 83735; 83880; 84484; 85025; 85610; 85730; 93005; 93010

== ENCOUNTER 2018-11-18 18:22 | Emergency (ER) | payer SELFPAY ==
--- NOTE | 2018-11-18 18:37 | Event Note ---
ED Screening Note ED Screening Note: pt presents with substernal CP that began 2 hours ago states her sugar was 344 at home, pt states she takes lantus no V/D no SOB PMHx HTN, DM, asthma, breast cancer in remission This initial assessment/diagnostic orders/clinical plan/treatment(s) is/are subject to change based on patients health status, clinical progression and re- assessment by fellow clinical providers in the ED. Further treatment and workup at subsequent clinical providers discretion. Patient/guardian urged not to elope from the ED as their condition may be serious if not clinically assessed and managed. Initial orders include: CP protocol
--- NOTE | 2018-11-18 19:14 | XRay Report ---
CHEST 2 VIEWS INDICATION / CLINICAL INFORMATION: Chest pain. Near syncope. COMPARISON: CTA of the chest from 08/29/2016 FINDINGS: SUPPORT DEVICES: None. HEART / MEDIASTINUM: No significant abnormality. LUNGS / PLEURA: No significant pulmonary or pleural abnormality. No pneumothorax. ADDITIONAL FINDINGS: No significant additional findings. IMPRESSION: No significant abnormality of the chest. Signer Name: Orville Lyons MD Signed: 11/18/2018 7:09 PM Workstation Name: [id number]
[2018-11-18 20:01] LABS: Basophils # (Auto) 0.1 K/mm3 (0.0-0.1); Eosinophils # (Auto) 0.1 K/mm3 (0.0-0.4); Eosinophils % (Auto) 1.1 % (0.0-4.3); Hematocrit 43.1 % (30.3-42.9); Hemoglobin 14.3 gm/dl (10.1-14.3); Lymphocytes # (Auto) 2.7 K/mm3 (1.2-5.4); Lymphocytes % (Auto) 38.9 % (13.4-35.0); Mean Corpuscular HGB Conc 33 % (30-34); Mean Corpuscular Volume 78 fl (79-97); Monocytes # (Auto) 0.4 K/mm3 (0.0-0.8); Monocytes % (Auto) 5.5 % (0.0-7.3); Platelet Count 312 K/mm3 (140-440); Red Blood Count 5.52 M/mm3 (3.65-5.03); Red Cell Distribution Width 16.3 % (13.2-15.2)
[2018-11-18 20:39] LABS: Alanine Aminotransferase 27 units/L (7-56); Albumin 4.1 g/dL (3.9-5); BUN/Creatinine Ratio 13; Blood Urea Nitrogen 14 mg/dL (7-17); Calcium 9.9 mg/dL (8.4-10.2); Hemolysis Index 37
[2018-11-18] MEDS ORDERED: NACL 0.9% 1000 ML 1,000 ML IV ONE (20:52)
[2018-11-18] MEDS ORDERED: HumuLIN R IV ONE (20:53)
[2018-11-18] MEDS ORDERED: MORPHINE IV ONE (21:01)
[2018-11-18] MEDS ORDERED: ASPIRIN PO ONE (21:02)
[2018-11-18] MEDS ORDERED: ZOFRAN ONE (21:08)
[2018-11-18] MEDS ORDERED: PHENERGAN PO ONE (21:15)
[2018-11-18 23:10] VITALS: BP 158/88
--- NOTE | 2018-11-18 23:36 | Emergency Department Report ---
ED Chest Pain HPI - General Chief Complaint: Chest Pain Stated Complaint: PASSED OUT/CHEST PAIN Time Seen by Provider: 11/18/18 18:36 Source: patient Mode of arrival: Ambulatory Limitations: No Limitations - History of Present Illness Severity scale (0 -10): 0 - Related Data Home Medications Medication Instructions Recorded Confirmed Last Taken Atenolol [Tenormin] 50 mg PO BID 08/29/16 08/29/16 Unknown Budesoni/Formoterol 80-4.5(Nf) 2 puff IH BID 08/29/16 08/29/16 Unknown [Symbicort 80-4.5 (Nf)] Furosemide [Lasix TAB] 40 mg PO QDAY 08/29/16 08/29/16 Unknown Insulin Lispro [HumaLOG VIAL] See Protocol SQ PC 08/29/16 08/29/16 Unknown LORazepam [Ativan] 2 mg PO TID 08/29/16 08/29/16 Unknown Losartan [Cozaar] 100 mg PO DAILY 08/29/16 08/29/16 Unknown Tiotropium [Spiriva] 18 mcg IH QDAY 08/29/16 08/29/16 Unknown glipiZIDE 1 PO DAILY 08/29/16 Unknown hydrOXYzine HCl [Hydroxyzine HCl] 25 mg PO QHS 08/29/16 08/29/16 Unknown Previous Rx's Medication Instructions Recorded Last Taken Type Clindamycin [Clindamycin CAP] 300 mg PO Q6H #40 capsule 08/29/16 Unknown Rx Enoxaparin [Lovenox] 120 mg SQ Q12HR #20 syringe 08/29/16 Unknown Rx Allergies Allergy/AdvReac Type Severity Reaction Status Date / Time Penicillins Allergy Intermediate Itching Verified 11/18/18 18:23 erythromycin base Allergy Itching Verified 11/18/18 18:23 metoclopramide HCl AdvReac Unknown Verified 11/18/18 18:23 [From Reglan] ondansetron HCl AdvReac Unknown Verified 11/18/18 18:23 [From Zofran (as hydrochloride)] prochlorperazine AdvReac Unknown Verified 11/18/18 18:23 [From Compazine] prochlorperazine edisylate AdvReac Unknown Verified 11/18/18 18:23 [From Compazine] prochlorperazine maleate AdvReac Unknown Verified 11/18/18 18:23 [From Compazine] rivaroxaban [From Xarelto] AdvReac Unknown Verified 11/18/18 18:23 ED Review of Systems ROS: Stated complaint: PASSED OUT/CHEST PAIN Other details as noted in HPI ED Past Medical Hx - Past Medical History Hx Hypertension: Yes Hx Diabetes: Yes Hx Deep Vein Thrombosis: Yes Hx Pulmonary Embolism: Yes Hx Seizures: Yes (no meds) Additional medical history: Braest CA, gastropheresis, stomach ulcer - Surgical History Hx Appendectomy: Yes Additional Surgical History: bilateral mastectomy, C-sectionx 3 - Social History Smoking Status: Never Smoker Substance Use Type: None - Medications Home Medications: Home Medications Medication Instructions Recorded Confirmed Last Taken Type Atenolol [Tenormin] 50 mg PO BID 08/29/16 08/29/16 Unknown History Budesoni/Formoterol 80-4.5(Nf) 2 puff IH BID 08/29/16 08/29/16 Unknown History [Symbicort 80-4.5 (Nf)] Clindamycin [Clindamycin CAP] 300 mg PO Q6H #40 capsule 08/29/16 Unknown Rx Enoxaparin [Lovenox] 120 mg SQ Q12HR #20 syringe 08/29/16 Unknown Rx Furosemide [Lasix TAB] 40 mg PO QDAY 08/29/16 08/29/16 Unknown History Insulin Lispro [HumaLOG VIAL] See Protocol SQ PC 08/29/16 08/29/16 Unknown History LORazepam [Ativan] 2 mg PO TID 08/29/16 08/29/16 Unknown History Losartan [Cozaar] 100 mg PO DAILY 08/29/16 08/29/16 Unknown History Tiotropium [Spiriva] 18 mcg IH QDAY 08/29/16 08/29/16 Unknown History glipiZIDE 1 PO DAILY 08/29/16 Unknown History hydrOXYzine HCl [Hydroxyzine HCl] 25 mg PO QHS 08/29/16 08/29/16 Unknown History ED Physical Exam - General Limitations: No Limitations General appearance: alert, in no apparent distress - Head Head exam: Present: atraumatic, normocephalic - Eye Eye exam: Present: normal appearance, PERRL, EOMI Pupils: Present: normal accommodation - ENT ENT exam: Present: normal exam, normal orophraynx - Neck Neck exam: Present: normal inspection - Respiratory Respiratory exam: Present: normal lung sounds bilaterally - Cardiovascular Cardiovascular Exam: Present: regular rate, normal rhythm - GI/Abdominal GI/Abdominal exam: Present: soft, normal bowel sounds - Extremities Exam Extremities exam: Present: normal inspection - Back Exam Back exam: Present: normal inspection - Neurological Exam Neurological exam: Present: alert, oriented X3, CN II-XII intact - Skin Skin exam: Present: warm ED Course Vital Signs 11/18/18 11/18/18 11/18/18 18:36 21:28 21:29 Temperature 98.8 F Pulse Rate 107 H 99 H Respiratory 16 18 18 Rate Blood Pressure 179/94 156/96 [Left] O2 Sat by Pulse 96 99 99 Oximetry 11/18/18 23:09 Temperature Pulse Rate 97 H Respiratory 19 Rate Blood Pressure 158/88 [Left] O2 Sat by Pulse 97 Oximetry ED Medical Decision Making - Lab Data Result diagrams: 11/18/18 19:07 11/18/18 19:07 - EKG Data Rate: tachycardia - EKG Data When compared to previous EKG there are: no significant change Interpretation: no acute changes - Radiology Data Radiology results: report reviewed - Differential Diagnosis acs, atypical chest pain, gastritis, costochondritis Critical care attestation.: If time is entered above; I have spent that time in minutes in the direct care of this critically ill patient, excluding procedure time. ED Disposition Clinical Impression: Chest pain, Hyperglycemia Disposition: DC-01 TO HOME OR SELFCARE Condition: Stable Instructions: Chest Pain (ED), Diabetic Hyperglycemia (ED) Referrals: PRIMARY CARE, [Primary Care Provider] - 3-5 Days
== END 2018-11-18 23:55 | disposition home or self-care (01) ==
LOC: ED 18:22
DX: E11.65 Type 2 diabetes mellitus with hyperglycemia (principal); I10 Essential (primary) hypertension; Z86.718 Personal history of other venous thrombosis and embolism; Z98.890 Other specified postprocedural states; Z79.4 Long term (current) use of insulin; Z79.899 Other long term (current) drug therapy; Z88.1 Allergy status to other antibiotic agents; Z88.0 Allergy status to penicillin; Z88.8 Allergy status to other drugs, medicaments and biological substances
CPT/HCPCS: 36415; 71046; 80053; 82805; 82962; 84484; 85025; 93005; 93010; 96361; 96374; 96375; 99284; J2270; J7030; Q0169; J1815; J2405

== ENCOUNTER 2018-11-30 21:42 | Emergency (ER) | payer SELFPAY ==
--- NOTE | 2018-11-30 22:19 | Event Note ---
ED Screening Note Date of service: 11/30/18 Time: 22:16 ED Screening Note: 53 y o f presents s/p syncopal episode at home in the bathroom admits back and abd pain This initial assessment/diagnostic orders/clinical plan/treatment(s) is/are subject to change based on patients health status, clinical progression and re- assessment by fellow clinical providers in the ED. Further treatment and workup at subsequent clinical providers discretion. Patient/guardian urged not to elope from the ED as their condition may be serious if not clinically assessed and managed. Initial orders include: labs
[2018-11-30 22:52] LABS: Basophils # (Auto) 0.1 K/mm3 (0.0-0.1); Eosinophils # (Auto) 0.1 K/mm3 (0.0-0.4); Eosinophils % (Auto) 1.6 % (0.0-4.3); Hematocrit 41.6 % (30.3-42.9); Hemoglobin 14.2 gm/dl (10.1-14.3); Lymphocytes # (Auto) 1.6 K/mm3 (1.2-5.4); Lymphocytes % (Auto) 30.9 % (13.4-35.0); Mean Corpuscular HGB Conc 34 % (30-34); Mean Corpuscular Volume 78 fl (79-97); Monocytes # (Auto) 0.3 K/mm3 (0.0-0.8); Monocytes % (Auto) 5.2 % (0.0-7.3); Platelet Count 272 K/mm3 (140-440); Red Blood Count 5.36 M/mm3 (3.65-5.03); Red Cell Distribution Width 16.1 % (13.2-15.2)
[2018-11-30 23:12] LABS: Alanine Aminotransferase 32 units/L (7-56); Albumin 3.9 g/dL (3.9-5); BUN/Creatinine Ratio 12; Blood Urea Nitrogen 13 mg/dL (7-17); Calcium 9.9 mg/dL (8.4-10.2); Hemolysis Index 9
[2018-11-30 23:16] LABS: Creatine Kinase MB < 1.0 ng/mL (0.0-4.0)
--- NOTE | 2018-12-01 00:04 | XRay Report ---
CHEST 2 VIEWS INDICATION / CLINICAL INFORMATION: Syncope. COMPARISON: 11/27/2018 chest FINDINGS: SUPPORT DEVICES: None. HEART / MEDIASTINUM: No significant abnormality. LUNGS / PLEURA: No significant pulmonary or pleural abnormality. No pneumothorax. ADDITIONAL FINDINGS: No significant additional findings. IMPRESSION: 1. No acute findings. Signer Name: Santi Andrews MD Signed: 11/30/2018 11:59 PM Workstation Name: [id number]
--- NOTE | 2018-12-01 00:07 | Cat Scan Report ---
CT head/brain wo con INDICATION: syncope. TECHNIQUE: Routine CT head without contrast. All CT scans at this location are performed using CT dos e reduction for ALARA by means of automated exposure control. COMPARISON: Brain CT 11/27/2018 FINDINGS: BRAIN / INTRACRANIAL CONTENTS: No acute hemorrhage, mass effect, midline shift, or hydrocephalus. No appreciable acute large territorial or lacunar infarct. No chronic infarct or focal atrophy. Normal b rain volume and ventricular/sulcal size for age. ORBITS: No significant abnormality of visualized orbits. SINUSES / MASTOIDS: No significant abnormality of visualized sinuses and mastoid air cells. ADDITIONAL FINDINGS: None. IMPRESSION: 1. No acute intracranial abnormality. Signer Name: Santi Andrews MD Signed: 12/01/2018 12:02 AM Workstation Name: [id number]
[2018-12-01] MEDS ORDERED: NORCO 5/325 PO ONE (00:36)
--- NOTE | 2018-12-01 00:36 | Emergency Department Report ---
ED General Adult HPI - General Chief complaint: Syncope Stated complaint: SYNCOPAL EPISODE Time Seen by Provider: 11/30/18 22:15 Source: patient, EMS Mode of arrival: Wheelchair Limitations: No Limitations - History of Present Illness Initial comments: Patient presents to the emergency department with a chief complaint of syncopal episode. She states that she was taking a shower and then remembers waking up on the floor. Patient states she was recently seen in emergency department and admitted to the hospital for syncopal episode. Patient denies chest pain prior to or after the episode. Patient also denies shortness of breath or abdominal pain. Patient also complains of some mild back pain is chronic in nature per the patient Severity scale (0 -10): 0 - Related Data Home Medications Medication Instructions Recorded Confirmed Last Taken Atenolol [Tenormin] 100 mg PO BID 08/29/16 11/27/18 Unknown Budesoni/Formoterol 80-4.5(Nf) 2 puff IH BID 08/29/16 11/27/18 Unknown [Symbicort 80-4.5 (Nf)] Furosemide [Lasix TAB] 40 mg PO QDAY 08/29/16 11/27/18 Unknown Insulin Lispro [HumaLOG VIAL] See Protocol SQ PC 08/29/16 11/27/18 Unknown LORazepam [Ativan] 2 mg PO TID 08/29/16 11/27/18 Unknown Losartan [Cozaar] 100 mg PO DAILY 08/29/16 11/27/18 Unknown Tiotropium [Spiriva] 18 mcg IH QDAY 08/29/16 11/27/18 Unknown hydrOXYzine HCl [Hydroxyzine HCl] 25 mg PO QHS 08/29/16 11/27/18 Unknown Gabapentin [Neurontin] 300 mg PO QDAY 11/27/18 11/27/18 Unknown Insulin Aspart [NovoLOG 100 12 unit SQ AC 11/27/18 11/27/18 Unknown UNITS/ML VIAL] Previous Rx's Medication Instructions Recorded Last Taken Type ALPRAZolam [Xanax TAB] 0.5 mg PO Q8H PRN #30 tablet 11/29/18 Unknown Rx Apixaban [Eliquis] 5 mg PO BID #60 tablet 11/29/18 Unknown Rx Insulin Glargine [Lantus VIAL] 30 unit SUB-Q QHS #1 mo 11/29/18 Unknown Rx Ibuprofen [Motrin] 800 mg PO Q8HR PRN #30 tablet 12/01/18 Unknown Rx Allergies Allergy/AdvReac Type Severity Reaction Status Date / Time Penicillins Allergy Intermediate Itching Verified 11/18/18 18:23 erythromycin base Allergy Itching Verified 11/18/18 18:23 metoclopramide HCl AdvReac Unknown Verified 11/18/18 18:23 [From Reglan] ondansetron HCl AdvReac Unknown Verified 11/18/18 18:23 [From Zofran (as hydrochloride)] prochlorperazine AdvReac Unknown Verified 11/18/18 18:23 [From Compazine] prochlorperazine edisylate AdvReac Unknown Verified 11/18/18 18:23 [From Compazine] prochlorperazine maleate AdvReac Unknown Verified 11/18/18 18:23 [From Compazine] rivaroxaban [From Xarelto] AdvReac Unknown Verified 11/18/18 18:23 ED Review of Systems ROS: Stated complaint: SYNCOPAL EPISODE Other details as noted in HPI Comment: All other systems reviewed and negative Constitutional: denies: chills, fever Eyes: denies: eye pain, eye discharge, vision change ENT: denies: ear pain, throat pain Respiratory: denies: cough, shortness of breath, wheezing Cardiovascular: denies: chest pain, palpitations Endocrine: no symptoms reported Gastrointestinal: denies: abdominal pain, nausea, diarrhea Genitourinary: denies: urgency, dysuria, discharge Musculoskeletal: denies: back pain, joint swelling, arthralgia Skin: denies: rash, lesions Neurological: denies: headache, weakness, paresthesias Psychiatric: denies: anxiety, depression Hematological/Lymphatic: denies: easy bleeding, easy bruising ED Past Medical Hx - Past Medical History Previous Medical History?: Yes Hx Hypertension: Yes Hx Congestive Heart Failure: Yes Hx Diabetes: Yes Hx Deep Vein Thrombosis: Yes Hx Pulmonary Embolism: Yes Hx Seizures: Yes (no meds) Hx Asthma: Yes Hx COPD: Yes Additional medical history: Breast CA, gastropheresis, stomach ulcer - Surgical History Past Surgical History?: Yes Hx Appendectomy: Yes Additional Surgical History: bilateral mastectomy, C-sectionx 3 - Social History Smoking Status: Never Smoker - Medications Home Medications: Home Medications Medication Instructions Recorded Confirmed Last Taken Type Atenolol [Tenormin] 100 mg PO BID 08/29/16 11/27/18 Unknown History Budesoni/Formoterol 80-4.5(Nf) 2 puff IH BID 08/29/16 11/27/18 Unknown History [Symbicort 80-4.5 (Nf)] Furosemide [Lasix TAB] 40 mg PO QDAY 08/29/16 11/27/18 Unknown History Insulin Lispro [HumaLOG VIAL] See Protocol SQ PC 08/29/16 11/27/18 Unknown History LORazepam [Ativan] 2 mg PO TID 08/29/16 11/27/18 Unknown History Losartan [Cozaar] 100 mg PO DAILY 08/29/16 11/27/18 Unknown History Tiotropium [Spiriva] 18 mcg IH QDAY 08/29/16 11/27/18 Unknown History hydrOXYzine HCl [Hydroxyzine HCl] 25 mg PO QHS 08/29/16 11/27/18 Unknown History Gabapentin [Neurontin] 300 mg PO QDAY 11/27/18 11/27/18 Unknown History Insulin Aspart [NovoLOG 100 12 unit SQ AC 11/27/18 11/27/18 Unknown History UNITS/ML VIAL] ALPRAZolam [Xanax TAB] 0.5 mg PO Q8H PRN #30 tablet 11/29/18 Unknown Rx Apixaban [Eliquis] 5 mg PO BID #60 tablet 11/29/18 Unknown Rx Insulin Glargine [Lantus VIAL] 30 unit SUB-Q QHS #1 mo 11/29/18 11/27/18 Unknown Rx Ibuprofen [Motrin] 800 mg PO Q8HR PRN #30 tablet 12/01/18 Unknown Rx ED Physical Exam - General Limitations: No Limitations General appearance: alert, in no apparent distress - Head Head exam: Present: atraumatic, normocephalic - Eye Eye exam: Present: normal appearance, PERRL, EOMI - ENT ENT exam: Present: mucous membranes moist - Neck Neck exam: Present: normal inspection - Respiratory Respiratory exam: Present: normal lung sounds bilaterally. Absent: respiratory distress - Cardiovascular Cardiovascular Exam: Present: regular rate, normal rhythm. Absent: systolic murmur, diastolic murmur, rubs, gallop - GI/Abdominal GI/Abdominal exam: Present: soft, normal bowel sounds - Extremities Exam Extremities exam: Present: normal inspection - Back Exam Back exam: Present: normal inspection - Neurological Exam Neurological exam: Present: alert, oriented X3, CN II-XII intact. Absent: motor sensory deficit - Psychiatric Psychiatric exam: Present: normal affect, normal mood - Skin Skin exam: Present: warm, dry, intact, normal color. Absent: rash ED Course Vital Signs 11/30/18 11/30/18 22:16 22:55 Temperature 97.7 F 99.1 F Pulse Rate 105 H 103 H Respiratory 18 26 H Rate Blood Pressure 162/107 Blood Pressure 139/86 [Left] O2 Sat by Pulse 94 96 Oximetry ED Medical Decision Making - Lab Data Result diagrams: 11/30/18 22:36 11/30/18 22:36 Lab Results 11/30/18 11/30/18 11/30/18 Range/Units 22:36 22:36 22:36 WBC 5.2 (4.5-11.0) K/mm3 RBC 5.36 H (3.65-5.03) M/mm3 Hgb 14.2 (10.1-14.3) gm/dl Hct 41.6 (30.3-42.9) % MCV 78 L (79-97) fl MCH 26 L (28-32) pg MCHC 34 (30-34) % RDW 16.1 H (13.2-15.2) % Plt Count 272 (140-440) K/mm3 Lymph % (Auto) 30.9 (13.4-35.0) % [place] % (Auto) 5.2 (0.0-7.3) % Eos % (Auto) 1.6 (0.0-4.3) % Baso % (Auto) 1.0 (0.0-1.8) % Lymph # 1.6 (1.2-5.4) K/mm3 [place] # 0.3 (0.0-0.8) K/mm3 Eos # 0.1 (0.0-0.4) K/mm3 Baso # 0.1 (0.0-0.1) K/mm3 Seg Neutrophils % 61.3 (40.0-70.0) % Seg Neutrophils # 3.2 (1.8-7.7) K/mm3 PT 12.9 (12.2-14.9) Sec. INR 1.00 (0.87-1.13) Sodium 136 L (137-145) mmol/L Potassium 4.4 (3.6-5.0) mmol/L Chloride 97.2 L (98-107) mmol/L Carbon Dioxide 24 (22-30) mmol/L Anion Gap 19 mmol/L BUN 13 (7-17) mg/dL Creatinine 1.1 (0.7-1.2) mg/dL Estimated GFR > 60 ml/min BUN/Creatinine Ratio 12 % Glucose 438 H (65-100) mg/dL Calcium 9.9 (8.4-10.2) mg/dL Total Bilirubin < 0.20 (0.1-1.2) mg/dL AST 35 (5-40) units/L ALT 32 (7-56) units/L Alkaline Phosphatase 196 H (35-129) units/L Total Creatine Kinase 51 (30-135) units/L CK-MB (CK-2) < 1.0 (0.0-4.0) ng/mL CK-MB (CK-2) Rel Index 1.9 (0-4) Troponin T < 0.010 (0.00-0.029) ng/mL Total Protein 7.5 (6.3-8.2) g/dL Albumin 3.9 (3.9-5) g/dL Albumin/Globulin Ratio 1.1 % - EKG Data -: EKG Interpreted by Nc EKG shows normal: sinus rhythm Rate: normal - Radiology Data Radiology results: report reviewed - Medical Decision Making The patient's previous medical records from her prior visit were reviewed including the carotid artery ultrasound and the cardiac ultrasound. Results discussed with patient Critical care attestation.: If time is entered above; I have spent that time in minutes in the direct care of this critically ill patient, excluding procedure time. ED Disposition Clinical Impression: Syncope Disposition: DC-01 TO HOME OR SELFCARE Is pt being admited?: No Does the pt Need Aspirin: No Condition: Stable Instructions: Syncope (ED) Additional Instructions: return if worse Referrals: PRIMARY CARE, [Primary Care Provider] - 3-5 Days [facility] [Provider Group] - 3-5 Days [facility] [Provider Group] - 3-5 Days Time of Disposition: 00:37
[2018-12-01] MEDS ORDERED: PHENERGAN PO ONE (00:42)
[2018-12-01 01:30] VITALS: BP 153/95
[2018-12-01 01:44] LABS: Bacteria,Urine 1+ /HPF (Negative); Bilirubin,Urine NEG (Negative); Blood,Urine NEG (Negative); Color,Urine Straw (Yellow); Mucus,Urine FEW /HPF; Protein,Urine <15 mg/dL mg/dL (Negative); Urobilinogen,Urine < 2.0 mg/dL (<2.0)
== END 2018-12-01 01:34 | disposition home or self-care (01) ==
LOC: ED 21:42
DX: R55 Syncope and collapse (principal); I11.0 Hypertensive heart disease with heart failure; I50.9 Heart failure, unspecified; E11.9 Type 2 diabetes mellitus without complications; Z88.0 Allergy status to penicillin; Z91.041 Radiographic dye allergy status; Z88.8 Allergy status to other drugs, medicaments and biological substances; Z79.4 Long term (current) use of insulin
CPT/HCPCS: 36415; 70450; 71046; 80053; 81001; 82550; 82553; 84484; 85025; 85610; 93005; 93010; Q0169

== ENCOUNTER 2019-01-22 16:53 | Emergency (ER) | payer SELFPAY ==
[2019-01-22] MEDS ORDERED: ASPIRIN 325 MG TAB PO ONE (17:02)
--- NOTE | 2019-01-22 17:02 | Event Note ---
ED Screening Note Date of service: 01/22/19 Time: 16:57 ED Screening Note: Patient reports CP and blood sugar has been elevated x 3 days. CP x 2 days on left going towards armpit. H/O bilateral mastectomy s/p breast cancer. SOBOE . BG at home greater 400. H/O TX x2 . Has PCP DR. Palomares. Attempted stress test 2 weeks ago but had reaction to medication Reports CHF. She reports that cp is 10/10 and feels like someone is sitting in chest with pressure. No medication taken prior to ED. Denies N/V. reports dizziness. POC BG 400 NL work of breathing EKG done Tachycardia with low grade temp otherwise VS stable This initial assessment/diagnostic orders/clinical plan/treatment(s) is/are subject to change based on patients health status, clinical progression and re- assessment by fellow clinical providers in the ED. Further treatment and workup at subsequent clinical providers discretion. Patient/guardian urged not to elope from the ED as their condition may be serious if not clinically assessed and managed. Initial orders include: CP protocol
--- NOTE | 2019-01-22 17:51 | XRay Report ---
CHEST 2 VIEWS INDICATION / CLINICAL INFORMATION: Chest Pain. Shortness of breath, blurred vision and high blood pressure. COMPARISON: 11/30/2018. FINDINGS: SUPPORT DEVICES: None. HEART / MEDIASTINUM: The heart size and pulmonary vasculature are normal. The aorta is normal in em[place]. LUNGS / PLEURA: No significant pulmonary or pleural abnormality. No pneumothorax. ADDITIONAL FINDINGS: No significant additional findings. IMPRESSION: No acute abnormality or significant change. Signer Name: Elver Villanueva MD Signed: 01/22/2019 5:46 PM Workstation Name: [id number]
[2019-01-22 19:00] LABS: Bilirubin,Urine NEG (Negative); Blood,Urine NEG (Negative); Color,Urine Straw (Yellow); Protein,Urine <15 mg/dL mg/dL (Negative); Urobilinogen,Urine < 2.0 mg/dL (<2.0); WBC,Urine < 1.0 /HPF (0.0-6.0)
[2019-01-22 19:25] VITALS: BP 161/94
--- NOTE | 2019-01-22 19:29 | XRay Report ---
ABDOMEN 2 VIEW(S) INDICATION / CLINICAL INFORMATION: Abdominal pain. COMPARISON: None available. FINDINGS: TUBES / LINES: None. BOWEL GAS PATTERN: There is a moderate amount of stool throughout the colon. I see no evidence of bow el obstruction or mass effect. FREE AIR / EXTRALUMINAL GAS: None seen. ADDITIONAL FINDINGS: No abnormal calcification is seen. IMPRESSION: No acute abnormality. Signer Name: Elver Villanueva MD Signed: 01/22/2019 7:24 PM Workstation Name: [id number]
[2019-01-22] MEDS ORDERED: SODIUM CHLORIDE 0.9% 1000 ML 1,000 ML IV ONE (19:31)
[2019-01-22 19:32] LABS: Basophils # (Auto) 0.1 K/mm3 (0.0-0.1); Basophils % (Auto) 1.9 % (0.0-1.8); Eosinophils % (Auto) 0.9 % (0.0-4.3); Hematocrit 41.9 % (30.3-42.9); Hemoglobin 13.9 gm/dl (10.1-14.3); Lymphocytes # (Auto) 1.4 K/mm3 (1.2-5.4); Lymphocytes % (Auto) 24.6 % (13.4-35.0); Mean Corpuscular HGB Conc 33 % (30-34); Mean Corpuscular Volume 79 fl (79-97); Monocytes # (Auto) 0.3 K/mm3 (0.0-0.8); Monocytes % (Auto) 4.5 % (0.0-7.3); Platelet Count 240 K/mm3 (140-440); Red Blood Count 5.29 M/mm3 (3.65-5.03); Red Cell Distribution Width 15.8 % (13.2-15.2)
[2019-01-22 19:41] LABS: Alanine Aminotransferase 21 units/L (7-56); Albumin 3.9 g/dL (3.9-5); BUN/Creatinine Ratio 8; Blood Urea Nitrogen 7 mg/dL (7-17); Calcium 9.8 mg/dL (8.4-10.2); Hemolysis Index 6
[2019-01-22 19:42] LABS: INR 0.96 (0.87-1.13)
[2019-01-22] MEDS ORDERED: INSULIN REGULAR, HUMAN 100 UNITS/1 ML IV ONE (20:11)
--- NOTE | 2019-01-22 21:32 | Emergency Department Report ---
ED Abdominal Pain HPI - General Chief Complaint: Chest Pain Stated Complaint: CHEST PAIN, HIGH B/P,SHORTNESS OF BREATH,DIABETES Time Seen by Provider: 01/22/19 16:56 Source: patient Mode of arrival: Ambulatory Limitations: No Limitations - History of Present Illness Initial Comments: Reports symptoms feels like her gastroparesis. MD Complaint: abdominal pain -: Gradual Location: LLQ Radiation: none Migration to: no migration Severity: mild Severity scale (0 -10): 2 Quality: aching Consistency: intermittent Improves With: nothing Worsens With: nothing Associated Symptoms: nausea, vomiting, other (chest pain). denies: diarrhea, fever, chills, constipation, dysuria, hematemesis, hematochezia, melena, hematuria, anorexia, syncope - Related Data Home Medications Medication Instructions Recorded Confirmed Last Taken Atenolol [Tenormin] 100 mg PO BID 08/29/16 11/27/18 Unknown Budesoni/Formoterol 80-4.5(Nf) 2 puff IH BID 08/29/16 11/27/18 Unknown [Symbicort 80-4.5 (Nf)] Furosemide [Lasix TAB] 40 mg PO QDAY 08/29/16 11/27/18 Unknown Insulin Lispro [HumaLOG VIAL] See Protocol SQ PC 08/29/16 11/27/18 Unknown LORazepam [Ativan] 2 mg PO TID 08/29/16 11/27/18 Unknown Losartan [Cozaar] 100 mg PO DAILY 08/29/16 11/27/18 Unknown Tiotropium [Spiriva] 18 mcg IH QDAY 08/29/16 11/27/18 Unknown hydrOXYzine HCl [Hydroxyzine HCl] 25 mg PO QHS 08/29/16 11/27/18 Unknown Gabapentin 300 mg PO QDAY 11/27/18 11/27/18 Unknown Insulin Aspart [NovoLOG 100 12 unit SQ AC 11/27/18 11/27/18 Unknown UNITS/ML VIAL] Previous Rx's Medication Instructions Recorded Last Taken Type ALPRAZolam [Xanax TAB] 0.5 mg PO Q8H PRN #30 tablet 11/29/18 Unknown Rx Apixaban [Eliquis] 5 mg PO BID #60 tablet 11/29/18 Unknown Rx Insulin Glargine [Lantus VIAL] 30 unit SUB-Q QHS #1 mo 11/29/18 Unknown Rx Ibuprofen [Motrin] 800 mg PO Q8HR PRN #30 tablet 12/01/18 Unknown Rx Allergies Allergy/AdvReac Type Severity Reaction Status Date / Time Penicillins Allergy Intermediate Itching Verified 11/18/18 18:23 erythromycin base Allergy Itching Verified 11/18/18 18:23 metoclopramide HCl AdvReac Unknown Verified 11/18/18 18:23 [From Reglan] ondansetron HCl AdvReac Unknown Verified 11/18/18 18:23 [From Zofran (as hydrochloride)] prochlorperazine AdvReac Unknown Verified 11/18/18 18:23 [From Compazine] prochlorperazine edisylate AdvReac Unknown Verified 11/18/18 18:23 [From Compazine] prochlorperazine maleate AdvReac Unknown Verified 11/18/18 18:23 [From Compazine] rivaroxaban [From Xarelto] AdvReac Unknown Verified 11/18/18 18:23 ED Review of Systems ROS: Stated complaint: CHEST PAIN, HIGH B/P,SHORTNESS OF BREATH,DIABETES Other details as noted in HPI Other: GENERAL: No weight change, fatigue, fever, chills, or night sweats SKIN: No changes in skin or hair, no itching, no rashes, no jaundice HEAD: No trauma, headache, or visual changes EYES: No blurriness, tearing, itching, acute visual loss, conjunctival discoloration, or scleral icterus EARS: No hearing loss, tinnitus, vertigo, or earache NOSE: No rhinorrhea, stuffiness, sneezing, itching, or epistaxis MOUTH: No bleeding gums, hoarseness, sore throat, or swelling CARDIAC: Chest pain. No new murmur, palpitations, dyspnea on exertion, orthopnea, PND, or edema RESPIRATORY: No shortness of breath, wheeze, cough, sputum production, hemoptysis, pneumonia, asthma, bronchitis, or emphysema GI: Abdominal pain, n/v. No dysphagia, diarrhea, constipation, hematemesis, melena, hematochezia URINARY: No frequency, urgency, polyuria, dysuria, hematuria, or incontinence MUSCULOSKELETAL: No muscle weakness, joint stiffness, decrease in range of motion, redness, swelling NEUROLOGIC: No headache, syncope, loss of sensation, numbness, tingling, tremors, weakness, paralysis, seizures HEMATOLOGIC: No anemia, easy bruising, bleeding, petechiae, or purpura ENDOCRINE: No hot or cold intolerance, sweating, polyuria, polydipsia or, polyphagia no thyroid problems PSYCHIATRIC: No change in mood, no anxiety, no depression ED Past Medical Hx - Past Medical History Previous Medical History?: Yes Hx Hypertension: Yes Hx Congestive Heart Failure: Yes Hx Diabetes: Yes Hx Deep Vein Thrombosis: Yes Hx Pulmonary Embolism: Yes Hx of Cancer: Yes (breast) Hx Seizures: Yes (no meds) Hx Asthma: Yes Hx COPD: Yes Additional medical history: Breast CA, gastropheresis, stomach ulcer - Surgical History Past Surgical History?: Yes Hx Appendectomy: Yes Additional Surgical History: bilateral mastectomy, C-sectionx 3 - Social History Smoking Status: Never Smoker Substance Use Type: None - Medications Home Medications: Home Medications Medication Instructions Recorded Confirmed Last Taken Type Atenolol [Tenormin] 100 mg PO BID 08/29/16 11/27/18 Unknown History Budesoni/Formoterol 80-4.5(Nf) 2 puff IH BID 08/29/16 11/27/18 Unknown History [Symbicort 80-4.5 (Nf)] Furosemide [Lasix TAB] 40 mg PO QDAY 08/29/16 11/27/18 Unknown History Insulin Lispro [HumaLOG VIAL] See Protocol SQ PC 08/29/16 11/27/18 Unknown History LORazepam [Ativan] 2 mg PO TID 08/29/16 11/27/18 Unknown History Losartan [Cozaar] 100 mg PO DAILY 08/29/16 11/27/18 Unknown History Tiotropium [Spiriva] 18 mcg IH QDAY 08/29/16 11/27/18 Unknown History hydrOXYzine HCl [Hydroxyzine HCl] 25 mg PO QHS 08/29/16 11/27/18 Unknown History Gabapentin 300 mg PO QDAY 11/27/18 11/27/18 Unknown History Insulin Aspart [NovoLOG 100 12 unit SQ AC 11/27/18 11/27/18 Unknown History UNITS/ML VIAL] ALPRAZolam [Xanax TAB] 0.5 mg PO Q8H PRN #30 tablet 11/29/18 Unknown Rx Apixaban [Eliquis] 5 mg PO BID #60 tablet 11/29/18 Unknown Rx Insulin Glargine [Lantus VIAL] 30 unit SUB-Q QHS #1 mo 11/29/18 11/27/18 Unknown Rx Ibuprofen [Motrin] 800 mg PO Q8HR PRN #30 tablet 12/01/18 Unknown Rx ED Physical Exam - General Limitations: No Limitations - Other Other exam information: GENERAL: Patient in no acute distress HEAD: Normocephalic, atraumatic EYES: PERRLA, EOM intact, no scleral icterus, no conjunctival hemorrhage, visual castro and acuity wnl NOSE: No tenderness, discharge, sinus tenderness MOUTH: No erythema, bleeding, exudate HEART: Regular rate and rhythm, no murmur, S1-S2 are auscultated, no edema, pulses are symmetric LUNGS: No respiratory distress. Bilateral breath sounds, No tachypnea, No retractions, No wheezing, rales, rhonchi ABDOMEN: Normal bowel sounds, abdomen soft, no tenderness, no rebound, no guarding, no distention, no masses, no CVA tenderness MUSCULOSKELETAL: Normal joint range of motion, no redness, no swelling, no tenderness NEUROLOGIC: GCS 15, Alert and Oriented x3, Cranial nerves intact, normal sensat ion, normal strength, no cerebellar deficit, NIHSS 0 PSYCHIATRIC: Patient demanding, hostile with staff, and uncooperative with evaluations. No homicidal or suicidal ideation, no anxiety, no depression, no hallucinations SKIN: Skin is warm and dry, no wounds, no rashes ED Course Vital Signs 01/22/19 01/22/19 01/22/19 16:57 17:25 19:20 Temperature 99.0 F Pulse Rate 122 H 114 H 101 H Respiratory 16 14 22 Rate Blood Pressure 181/112 Blood Pressure 144/87 161/94 [Left] O2 Sat by Pulse 95 97 97 Oximetry ED Medical Decision Making - Lab Data Result diagrams: 01/22/19 18:58 01/22/19 18:58 Laboratory Results - last 24 hr 01/22/19 01/22/19 01/22/19 17:11 18:45 18:58 WBC 5.6 RBC 5.29 H Hgb 13.9 Hct 41.9 MCV 79 MCH 26 L MCHC 33 RDW 15.8 H Plt Count 240 Lymph % (Auto) 24.6 [place] % (Auto) 4.5 Eos % (Auto) 0.9 Baso % (Auto) 1.9 H Lymph # 1.4 [place] # 0.3 Eos # 0.0 Baso # 0.1 Seg Neutrophils % 68.1 Seg Neutrophils # 3.8 PT INR APTT Sodium Potassium Chloride Carbon Dioxide Anion Gap BUN Creatinine Estimated GFR BUN/Creatinine Ratio Glucose POC Glucose 412 H Calcium Total Bilirubin AST ALT Alkaline Phosphatase Troponin T Total Protein Albumin Albumin/Globulin Ratio Lipase Urine Color Straw Urine Turbidity Clear Urine pH 6.0 Ur Specific [place] 1.029 Urine Protein <15 mg/dl Urine Glucose (UA) >=500 Urine Ketones Neg Urine Blood Neg Urine Nitrite Neg Urine Bilirubin Neg Urine Urobilinogen < 2.0 Ur Leukocyte Esterase Neg Urine WBC (Auto) < 1.0 Urine RBC (Auto) 4.0 U Epithel Cells (Auto) < 1.0 01/22/19 01/22/19 01/22/19 18:58 18:58 18:58 WBC RBC Hgb Hct MCV MCH MCHC RDW Plt Count Lymph % (Auto) [place] % (Auto) Eos % (Auto) Baso % (Auto) Lymph # [place] # Eos # Baso # Seg Neutrophils % Seg Neutrophils # PT 12.7 INR 0.96 APTT 23.0 L Sodium 130 L Potassium 4.1 Chloride 95.5 L Carbon Dioxide 22 Anion Gap 17 BUN 7 Creatinine 0.9 Estimated GFR > 60 BUN/Creatinine Ratio 8 Glucose 441 H POC Glucose Calcium 9.8 Total Bilirubin 0.20 AST 18 ALT 21 Alkaline Phosphatase 160 H Troponin T < 0.010 Total Protein 8.0 Albumin 3.9 Albumin/Globulin Ratio 1.0 Lipase 44 Urine Color Urine Turbidity Urine pH Ur Specific [place] Urine Protein Urine Glucose (UA) Urine Ketones Urine Blood Urine Nitrite Urine Bilirubin Urine Urobilinogen Ur Leukocyte Esterase Urine WBC (Auto) Urine RBC (Auto) U Epithel Cells (Auto) 01/22/19 19:08 WBC RBC Hgb Hct MCV MCH MCHC RDW Plt Count Lymph % (Auto) [place] % (Auto) Eos % (Auto) Baso % (Auto) Lymph # [place] # Eos # Baso # Seg Neutrophils % Seg Neutrophils # PT INR APTT Sodium Potassium Chloride Carbon Dioxide Anion Gap BUN Creatinine Estimated GFR BUN/Creatinine Ratio Glucose POC Glucose Calcium Total Bilirubin AST ALT Alkaline Phosphatase Troponin T < 0.010 Total Protein Albumin Albumin/Globulin Ratio Lipase Urine Color Urine Turbidity Urine pH Ur Specific [place] Urine Protein Urine Glucose (UA) Urine Ketones Urine Blood Urine Nitrite Urine Bilirubin Urine Urobilinogen Ur Leukocyte Esterase Urine WBC (Auto) Urine RBC (Auto) U Epithel Cells (Auto) - EKG Data When compared to previous EKG there are: no significant change - Radiology Data Radiology results: report reviewed - Medical Decision Making Patient comfortable and was updated with results. Updated patient that plan would be to administer insulin IV and trend blood glucose levels. Patient at that time agreed to management. Later, ER nurse reports patient refused Insulin and signed out against medical advice. Reports patient stable at the time of leaving the ER. Critical care attestation.: If time is entered above; I have spent that time in minutes in the direct care of this critically ill patient, excluding procedure time. ED Disposition Clinical Impression: Chest pain Qualifiers: Chest pain type: unspecified Qualified Code(s): R07.9 - Chest pain, unspecified Abdominal pain Qualifiers: Abdominal location: unspecified location Qualified Code(s): R10.9 - Unspecified abdominal pain Disposition: - LEFT AGAINST MED ADVICE Is pt being admited?: No Condition: Stable Instructions: Chest Pain (ED) Referrals: PRIMARY CARE, [Primary Care Provider] - 3-5 Days Forms: AMA Form
== END 2019-01-22 20:35 | disposition left against medical advice (07) ==
LOC: ED 16:53
DX: R07.89 Other chest pain (principal); R10.32 Left lower quadrant pain; R11.2 Nausea with vomiting, unspecified; I11.0 Hypertensive heart disease with heart failure; E11.9 Type 2 diabetes mellitus without complications; Z88.0 Allergy status to penicillin; Z88.1 Allergy status to other antibiotic agents; Z88.5 Allergy status to narcotic agent; Z79.899 Other long term (current) drug therapy; Z79.4 Long term (current) use of insulin; Z88.8 Allergy status to other drugs, medicaments and biological substances; Z86.718 Personal history of other venous thrombosis and embolism; Z86.711 Personal history of pulmonary embolism; Z85.3 Personal history of malignant neoplasm of breast; Z90.49 Acquired absence of other specified parts of digestive tract
CPT/HCPCS: 36415; 71046; 74019; 80053; 81001; 82962; 83690; 84484; 85025; 85610; 85730; 93005; 93010; 96360; 99285; J7030

== ENCOUNTER 2019-01-26 14:58 | Inpatient (IN) | payer OTHER ==
[2019-01-26] MEDS ORDERED: ASPIRIN 81 MG TAB CHEW PO ONE (15:59)
--- NOTE | 2019-01-26 15:59 | Event Note ---
ED Screening Note Date of service: 01/26/18 Time: 15:54 ED Screening Note: Pt complains of chest pain, blurry vision, N/V, and urinary frequency x 2 days +DM, +hx ME, denies hx of CVA chest pain is left sided and pressure like +SOB States last stress test 2 years ago This initial assessment/diagnostic orders/clinical plan/treatment(s) is/are subject to change based on patients health status, clinical progression and re- assessment by fellow clinical providers in the ED. Further treatment and workup at subsequent clinical providers discretion. Patient/guardian urged not to elope from the ED as their condition may be serious if not clinically assessed and managed. Initial orders include: aspirin labs CXR UA
--- NOTE | 2019-01-26 16:57 | Emergency Department Report ---
ED Chest Pain HPI - General Chief Complaint: Chest Pain Stated Complaint: CHEST PAIN/HTN Time Seen by Provider: 01/26/19 15:54 Source: patient Mode of arrival: Ambulatory Limitations: No Limitations - History of Present Illness Initial Comments: Patient is a 54-year-old female that presents emergency room with complaints of chest pain. Patient states her chest pain started 2 days ago. Patient states she believes she is having high sugar and her blood pressure feels better. Patient states when her sugar and subsequently her vision gets blurry. Patient states her blurry vision started 2 days ago. Patient states she's been on insulin for approximately 2 weeks. Patient states she's been monitoring her blood pressure at home. Patient states she's also been monitoring her sugar and has been reading high. MD Complaint: chest pain -: Sudden Onset: during rest Pain Location: substernal, left chest Pain Radiation: none Severity: severe Severity scale (0 -10): 10 Quality: sharp Consistency: constant Improves With: rest Worsens With: exertion re: nausea, vomting, dyspnea. denies: diaphoresis, sense of impending doom Other Symptoms: cough. denies: fever, syncope, rash, acid taste in mouth, leg swelling, palpitations, burping Treatments Prior to Arrival: none Aspirin use within the Past 7 Days: (1) Yes - Related Data On Oral Contraceptives: No Home Medications Medication Instructions Recorded Confirmed Last Taken Furosemide [Lasix TAB] 40 mg PO DAILY 08/29/16 01/26/19 Unknown Insulin Lispro [HumaLOG VIAL] See Protocol SQ PC 08/29/16 01/26/19 Unknown ALPRAZolam [Xanax TAB] 2 mg PO BID 01/26/19 01/26/19 Unknown Atenolol [Tenormin] 100 mg PO BID 01/26/19 01/26/19 Unknown Famotidine [Pepcid] 40 mg PO DAILY 01/26/19 01/26/19 Unknown Hydromorphone HCl [Dilaudid] 8 mg PO TID 01/26/19 01/26/19 Unknown Insulin Glargine [Lantus VIAL] 20 unit SUB-Q QHS 01/26/19 01/26/19 Unknown Promethazine [Phenergan] 25 mg PO Q6HR PRN 01/26/19 01/26/19 Unknown Quetiapine Fumarate [SEROquel] 600 mg PO QHS 01/26/19 01/26/19 Unknown hydrALAZINE [Apresoline TAB] 20 mg PO BID 01/26/19 01/26/19 Unknown Previous Rx's Medication Instructions Recorded Last Taken Type Apixaban [Eliquis] 5 mg PO BID #60 tablet 11/29/18 Unknown Rx Allergies Allergy/AdvReac Type Severity Reaction Status Date / Time Penicillins Allergy Intermediate Itching Verified 01/26/19 15:06 erythromycin base Allergy Itching Verified 01/26/19 15:06 metoclopramide HCl AdvReac Unknown Verified 01/26/19 15:06 [From Reglan] ondansetron HCl AdvReac Unknown Verified 01/26/19 15:06 [From Zofran (as hydrochloride)] prochlorperazine AdvReac Unknown Verified 01/26/19 15:06 [From Compazine] prochlorperazine edisylate AdvReac Unknown Verified 01/26/19 15:06 [From Compazine] prochlorperazine maleate AdvReac Unknown Verified 01/26/19 15:06 [From Compazine] rivaroxaban [From Xarelto] AdvReac Unknown Verified 01/26/19 15:06 Heart Score - HEART Score History: Moderately suspicious EKG: Normal Age: 45-65 Risk factors: > 3 risk factors or hx of atherosclerotic disease Troponin: < normal limit HEART Score: 4 ED Review of Systems ROS: Stated complaint: CHEST PAIN/HTN Other details as noted in HPI Constitutional: denies: chills, fever Eyes: denies: eye pain, eye discharge, vision change ENT: denies: ear pain, throat pain Respiratory: denies: cough, shortness of breath, wheezing Cardiovascular: chest pain. denies: palpitations Endocrine: no symptoms reported, increased thirst, increased urine Gastrointestinal: denies: abdominal pain, nausea, diarrhea Genitourinary: denies: urgency, dysuria, discharge Musculoskeletal: denies: back pain, joint swelling, arthralgia Skin: denies: rash, lesions Neurological: denies: headache, weakness, paresthesias Psychiatric: denies: anxiety, depression Hematological/Lymphatic: denies: easy bleeding, easy bruising ED Past Medical Hx - Past Medical History Previous Medical History?: Yes Hx Hypertension: Yes Hx Congestive Heart Failure: Yes Hx Diabetes: Yes Hx Deep Vein Thrombosis: Yes Hx Pulmonary Embolism: Yes Hx Seizures: Yes (no meds) Hx Asthma: Yes Hx COPD: Yes Additional medical history: Breast CA, gastropheresis, stomach ulcer - Surgical History Past Surgical History?: Yes Hx Appendectomy: Yes Additional Surgical History: bilateral mastectomy, C-sectionx 3 - Family History Family history: no significant - Social History Smoking Status: Never Smoker Substance Use Type: None - Medications Home Medications: Home Medications Medication Instructions Recorded Confirmed Last Taken Type Furosemide [Lasix TAB] 40 mg PO DAILY 08/29/16 01/26/19 Unknown History Insulin Lispro [HumaLOG VIAL] See Protocol SQ PC 08/29/16 01/26/19 Unknown History Apixaban [Eliquis] 5 mg PO BID #60 tablet 11/29/18 01/26/19 Unknown Rx ALPRAZolam [Xanax TAB] 2 mg PO BID 01/26/19 01/26/19 Unknown History Atenolol [Tenormin] 100 mg PO BID 01/26/19 01/26/19 Unknown History Famotidine [Pepcid] 40 mg PO DAILY 01/26/19 01/26/19 Unknown History Hydromorphone HCl [Dilaudid] 8 mg PO TID 01/26/19 01/26/19 Unknown History Insulin Glargine [Lantus VIAL] 20 unit SUB-Q QHS 01/26/19 01/26/19 Unknown History Promethazine [Phenergan] 25 mg PO Q6HR PRN 01/26/19 01/26/19 Unknown History Quetiapine Fumarate [SEROquel] 600 mg PO QHS 01/26/19 01/26/19 Unknown History hydrALAZINE [Apresoline TAB] 20 mg PO BID 01/26/19 01/26/19 Unknown History ED Physical Exam - General Limitations: No Limitations General appearance: alert, in no apparent distress - Head Head exam: Present: atraumatic, normocephalic - Eye Eye exam: Present: normal appearance - ENT ENT exam: Present: mucous membranes moist - Neck Neck exam: Present: normal inspection. Absent: tenderness, meningismus - Respiratory Respiratory exam: Present: normal lung sounds bilaterally. Absent: respiratory distress - Cardiovascular Cardiovascular Exam: Present: regular rate, normal rhythm. Absent: systolic murmur, diastolic murmur, rubs, gallop - GI/Abdominal GI/Abdominal exam: Present: soft, normal bowel sounds. Absent: distended, tenderness, guarding - Rectal Rectal exam: Present: deferred - Extremities Exam Extremities exam: Present: normal inspection - Back Exam Back exam: Present: normal inspection - Neurological Exam Neurological exam: Present: alert, oriented X3 - Psychiatric Psychiatric exam: Present: normal affect, normal mood - Skin Skin exam: Present: warm, dry, intact, normal color. Absent: rash ED Course Vital Signs 01/26/19 01/26/19 01/26/19 15:07 17:07 18:22 Temperature 98.6 F Pulse Rate 129 H 111 H 84 Respiratory 16 17 18 Rate Blood Pressure 167/112 Blood Pressure 112/83 140/64 [Right] O2 Sat by Pulse 97 95 99 Oximetry 01/26/19 01/26/19 18:41 19:56 Temperature Pulse Rate 109 H 110 H Respiratory 17 20 Rate Blood Pressure Blood Pressure 160/100 141/92 [Right] O2 Sat by Pulse 100 96 Oximetry - Reevaluation(s) Reevaluation #1: I discussed all results the patient. Patient is DKA and was placed on a DK protocol. I discussed plan of care and admission with patient. Patient agrees plan of care and admission. Patient will be admitted to the hospitalist service. 01/26/19 18:45 - Consultations Consultation #1: Hospitalist consult for admission. Hospitalist to admit patient. 01/26/19 18:55 MOJGAN score - Mojgan Score Age > 65: (0) No Aspirin use within the Past 7 Days: (1) Yes 3 or more CAD Risk Factors: (1) Yes 2 or more Angina events in past 24 hrs: (1) Yes Known CAD with more than 50% Stenosis: (0) No Elevated Cardiac Markers: (0) No ST Deviation Greater than 0.5mm: (0) No MOJGAN Score: 3 ED Medical Decision Making - Lab Data Result diagrams: 01/26/19 16:12 01/26/19 23:01 - EKG Data -: EKG Interpreted by Me EKG shows normal: sinus rhythm, axis, intervals, QRS complexes, ST-T waves Rate: tachycardia - Radiology Data Radiology results: report reviewed, image reviewed CHEST 1 VIEW INDICATION: chest pain, SOB. COMPARISON: 01/22/2019. FINDINGS: Support devices: None. Heart: Stable. Lungs/Pleura: No acute pulmonary or pleural findings. IMPRESSION: 1. No acute findings. - Medical Decision Making Patient is a 54-year-old female that presents emergency room with complaints of elevated sugar, elevated blood pressure and chest pain. Patient found to be in DKA and placed on a DK protocol. Patient admitted to the hospitalist service. Patient's labs consistent with elevated sugar, acidosis and DKA. Patient's EKG shows sinus tach. Patient's chest x-ray negative. - Differential Diagnosis DKA. Chest pain. High sugar. Elevated blood pressure. Critical Care Time: Yes Critical care time in (mins) excluding proc time.: 35 Critical care attestation.: If time is entered above; I have spent that time in minutes in the direct care of this critically ill patient, excluding procedure time. Critical Care Time: 35 minutes ED Disposition Clinical Impression: Hyperglycemia, Noncompliance, Blurred vision, bilateral Chest pain Qualifiers: Chest pain type: unspecified Qualified Code(s): R07.9 - Chest pain, unspecified DKA (diabetic ketoacidoses) Qualifiers: Diabetes mellitus type: type 2 Diabetes mellitus complication detail: without coma Qualified Code(s): E11.10 - Type 2 diabetes mellitus with ketoacidosis without coma Disposition: DC-09 OP ADMIT IP TO THIS HOSP Is pt being admited?: Yes Does the pt Need Aspirin: No Condition: Critical Time of Disposition: 19:00
[2019-01-26 17:13] LABS: Hematocrit 44.8 % (30.3-42.9); Hemoglobin 14.6 gm/dl (10.1-14.3); Mean Corpuscular HGB Conc 33 % (30-34); Mean Corpuscular Volume 80 fl (79-97); Red Cell Distribution Width 15.6 % (13.2-15.2)
[2019-01-26 17:16] LABS: Platelet Count 287 K/mm3 (140-440)
--- NOTE | 2019-01-26 17:39 | XRay Report ---
CHEST 1 VIEW INDICATION: chest pain, SOB. COMPARISON: 01/22/2019. FINDINGS: Support devices: None. Heart: Stable. Lungs/Pleura: No acute pulmonary or pleural findings. IMPRESSION: 1. No acute findings. Signer Name: Darnell Michel MD Signed: 01/26/2019 5:35 PM Workstation Name: [id number]
[2019-01-26 18:16] LABS: Alanine Aminotransferase 22 units/L (7-56); Albumin 4.1 g/dL (3.9-5); BUN/Creatinine Ratio 13; Blood Urea Nitrogen 12 mg/dL (7-17); Calcium 9.7 mg/dL (8.4-10.2); Hemolysis Index 9
[2019-01-26] MEDS ORDERED: HYDROmorphone 1 MG/1 ML INJ IV ONE (18:30)
[2019-01-26] MEDS ORDERED: SODIUM CHLORIDE 0.9% 1000 ML 1,000 ML IV ONE (18:43)
[2019-01-26] MEDS ORDERED: DEXTROSE 50% IN WATER (25GM) 50 ML SYRINGE IV PRN (18:43)
[2019-01-26] MEDS ORDERED: INSULIN REGULAR, HUMAN 100 UNITS in SODIUM CHLORIDE 0.9% 99 ML IV SCH (19:00)
[2019-01-26] MEDS ORDERED: ALPRAZolam 0.5 MG TAB PO PRN (19:04)
[2019-01-26] MEDS ORDERED: IBUPROFEN 800 MG TAB PO PRN (19:04)
--- NOTE | 2019-01-26 19:06 | History and Physical Report ---
History of Present Illness Chief complaint: My blood sugar is high History of present illness: 54 YO Female with DM complicated by Gastroparesis, HTN, Seizure Disorder, COPD, Asthma, Seizure Disorder, DVT/PE on Therapeutic Anticoagulation, PUD, Breast Cancer presents to ED for evaluation. Pt states that her blood glucose levels have been very high over the past several days. Pt also reports productive cough with green sputum, as well as nasal congestion. Pt also reports chest discomfort after her coughing episodes. Pt transported to [facility] via private vehicle. Pt seen and evaluated in ED and found to have DKA and initiated on insulin drip and admitted to ICU. Pt denies fever, chills, CP, Palpitations, Syncope, BRBPR, Unintentional weight loss, night sweats, or recent ill contacts. Prior admission on 11/27/18 reviewed. All listed medication reconciled at time of admission. Past History Past Medical History: other (see hpi) Past Surgical History: appendectomy, , mastectomy Social history: single. denies: smoking, alcohol abuse, prescription drug abuse Family history: diabetes, hypertension Medications and Allergies Allergies Allergy/AdvReac Type Severity Reaction Status Date / Time Penicillins Allergy Intermediate Itching Verified 01/26/19 15:06 erythromycin base Allergy Itching Verified 01/26/19 15:06 metoclopramide HCl AdvReac Unknown Verified 01/26/19 15:06 [From Reglan] ondansetron HCl AdvReac Unknown Verified 01/26/19 15:06 [From Zofran (as hydrochloride)] prochlorperazine AdvReac Unknown Verified 01/26/19 15:06 [From Compazine] prochlorperazine edisylate AdvReac Unknown Verified 01/26/19 15:06 [From Compazine] prochlorperazine maleate AdvReac Unknown Verified 01/26/19 15:06 [From Compazine] rivaroxaban [From Xarelto] AdvReac Unknown Verified 01/26/19 15:06 Home Medications Medication Instructions Recorded Confirmed Last Taken Type Furosemide [Lasix TAB] 40 mg PO DAILY 08/29/16 01/26/19 Unknown History Insulin Lispro [HumaLOG VIAL] See Protocol SQ PC 08/29/16 01/26/19 Unknown History Apixaban [Eliquis] 5 mg PO BID #60 tablet 11/29/18 01/26/19 Unknown Rx ALPRAZolam [Xanax TAB] 2 mg PO BID 01/26/19 01/26/19 Unknown History Atenolol [Tenormin] 100 mg PO BID 01/26/19 01/26/19 Unknown History Famotidine [Pepcid] 40 mg PO DAILY 01/26/19 01/26/19 Unknown History Hydromorphone HCl [Dilaudid] 8 mg PO TID 01/26/19 01/26/19 Unknown History Insulin Glargine [Lantus VIAL] 20 unit SUB-Q QHS 01/26/19 01/26/19 Unknown History Promethazine [Phenergan] 25 mg PO Q6HR PRN 01/26/19 01/26/19 Unknown History Quetiapine Fumarate [SEROquel] 600 mg PO QHS 01/26/19 01/26/19 Unknown History hydrALAZINE [Apresoline TAB] 20 mg PO BID 01/26/19 01/26/19 Unknown History Active Meds: Active Medications Dextrose (D50w (25gm) Syringe) 0 ml IV Q30MIN PRN PRN Reason: Hypoglycemia Insulin Human Regular 100 (units/ Sodium Chloride) 100 mls @ 1 mls/hr IV TITR MOIZ; Protocol Sodium Chloride (Nacl 0.9% 1000 Ml) 1,000 mls @ 999 mls/hr IV BOLUS ONE Stop: 01/26/19 19:43 Sodium Chloride (Sodium Chloride Flush Syringe 10 Ml) 10 ml IV BID MOIZ Sodium Chloride (Sodium Chloride Flush Syringe 10 Ml) 10 ml IV PRN PRN PRN Reason: LINE FLUSH Review of Systems Constitutional: no weight loss, no weight gain, no fever, no chills Ears, nose, mouth and throat: no ear pain, no ear discharge, no tinnitis, no decreased hearing, no nose pain, no nasal discharge Breasts: no change in shape, no swelling, no mass Cardiovascular: no chest pain, no orthopnea, no rapid/irregular heart beat, no syncope Respiratory: no cough, no cough with sputum, no excessive sputum Gastrointestinal: no abdominal pain, no nausea, no vomiting, no diarrhea, no change in bowel habits, no coffee ground emesis Genitourinary Female: no pelvic pain, no flank pain, no menorrhagia, no dysuria, no urinary frequency, no urgency Rectal: no pain, no incontinence, no bleeding Musculoskeletal: no neck stiffness, no neck pain, no shooting arm pain, no arm numbness/tingling, no low back pain Integumentary: no rash, no pruritis, no redness, no sores, no wounds, no jaundice Neurological: no head injury, no transient paralysis, no paralysis, no parathesias, no numbness Psychiatric: no anxiety, no memory loss, no sleep disturbances, no insomnia, no hypersomnia, no change in libido, no disorientation Endocrine: no cold intolerance, no heat intolerance, no excessive thirst, no allyssa yuria, no nocturia, no excessive sweating, no flushing Hematologic/Lymphatic: no easy bruising, no easy bleeding, no lymphadenopathy, no lymphedema Allergic/Immunologic: no urticaria, no allergic rhinitis, no wheezing, no persistent infections, no anaphylaxis, no angioedema Exam - Constitutional Vitals: Temp Pulse Resp BP Pulse Ox 98.6 F 109 H 17 160/100 100 01/26/19 15:07 01/26/19 18:41 01/26/19 18:41 01/26/19 18:41 01/26/19 18:41 General appearance: Present: mild distress - EENT Eyes: Present: PERRL ENT: hearing intact, clear oral mucosa - Neck Neck: Present: supple, normal ROM - Respiratory Respiratory effort: normal Respiratory: bilateral: CTA - Cardiovascular Heart Sounds: Present: S1 & S2. Absent: rub, click - Extremities Extremities: pulses symmetrical, No edema Peripheral Pulses: within normal limits - Abdominal General gastrointestinal: Present: soft, non-tender, non-distended, normal bowel sounds Female genitourinary: Present: normal - Integumentary Integumentary: Present: clear, warm, dry - Musculoskeletal Musculoskeletal: gait normal, strength equal bilaterally - Psychiatric Psychiatric: appropriate mood/affect, intact judgment & insight - Neurologic Neurologic: CNII-XII intact, moves all extremities Results - Labs CBC & Chem 7: 01/26/19 16:12 01/26/19 17:43 Labs: Abnormal lab results 01/26/19 01/26/19 01/26/19 Range/Units 16:12 17:43 17:43 RBC 5.60 H (3.65-5.03) M/mm3 Hgb 14.6 H (10.1-14.3) gm/dl Hct 44.8 H (30.3-42.9) % MCH 26 L (28-32) pg RDW 15.6 H (13.2-15.2) % VBG pH 7.439 H (7.320-7.420) Sodium 131 L (137-145) mmol/L Chloride 97.3 L (98-107) mmol/L Carbon Dioxide 17 L (22-30) mmol/L Glucose 426 H (65-100) mg/dL POC Glucose (70-105) Alkaline Phosphatase 159 H (35-129) units/L Total Protein 8.5 H (6.3-8.2) g/dL 01/26/19 Range/Units 18:05 RBC (3.65-5.03) M/mm3 Hgb (10.1-14.3) gm/dl Hct (30.3-42.9) % MCH (28-32) pg RDW (13.2-15.2) % VBG pH (7.320-7.420) Sodium (137-145) mmol/L Chloride (98-107) mmol/L Carbon Dioxide (22-30) mmol/L Glucose (65-100) mg/dL POC Glucose 356 H (70-105) Alkaline Phosphatase (35-129) units/L Total Protein (6.3-8.2) g/dL Assessment and Plan - Patient Problems (1) DKA (diabetic ketoacidoses) Current Visit: Yes Status: Acute Qualifiers: Diabetes mellitus type: type 2 Diabetes mellitus complication detail: without coma Qualified Code(s): E11.10 - Type 2 diabetes mellitus with ketoacidosis without coma Plan to address problem: DKA protocol: Insulin drip, IVF resuscitation therapy, monitor uop q shift, serial bmp, monitor anion gap, monitor serium potassium. The high probability of a clinically significant, sudden or life threatening deterioration of the [Endocrine, neuro, renal] system(s) required my full and direct attention, intervention and personal management. The aggregate critical care time was [65] minutes. This time is in addition to time spent performing reported procedures but includes the following: [x] Data Review and interpretation [x] Patient assessment and monitoring of vital signs [x] Documentation [x] Medication orders and management (2) Bronchitis Current Visit: Yes Status: Acute Plan to address problem: supplemental oxygen, nebulizer therapy, supportive care, (3) COPD (chronic obstructive pulmonary disease) Current Visit: Yes Status: Acute Qualifiers: Emphysema type: unspecified Plan to address problem: supplemental oxygen, nebulizer therapy, pulmonary toilet. (4) History of DVT (deep vein thrombosis) Current Visit: Yes Status: Acute Plan to address problem: continue therapeutic anticoagualtion. (5) Hx of pulmonary embolus Current Visit: No Status: Acute Plan to address problem: continue therapeutic anticoagulation (6) DVT prophylaxis Current Visit: Yes Status: Acute Plan to address problem: SCD to BLE while in bed, continue therapeutic anticoagulation.
[2019-01-26] MEDS ORDERED: LORazepam 2 MG TAB PO SCH (20:00)
[2019-01-26] MEDS ORDERED: LORazepam 2 MG TAB ONE (20:06)
[2019-01-26 20:47] LABS: BUN/Creatinine Ratio 14; Blood Urea Nitrogen 11 mg/dL (7-17); Calcium 9.6 mg/dL (8.4-10.2); Hemolysis Index 39
[2019-01-26 21:20] LABS: BUN/Creatinine Ratio 14; Blood Urea Nitrogen 11 mg/dL (7-17); Calcium 9.8 mg/dL (8.4-10.2); Hemolysis Index 43
[2019-01-26] MEDS: BUDESONIDE 0.5 MG/2 ML NEBU IH SCH (21:39)
[2019-01-26] MEDS: ARFORMOTEROL 15 MCG/2 ML NEBU IH SCH (21:39)
[2019-01-26] MEDS ORDERED: hydrOXYzine HCL 25 MG TAB PO SCH (22:00)
[2019-01-26] MEDS ORDERED: BUDESONI IH SCH (22:00)
[2019-01-26] MEDS ORDERED: FORMOTEROL IH SCH (22:00)
[2019-01-26] MEDS ORDERED: D5W/0.45% NACL/KCL 20 MEQ 20 MEQ/1,000 ML BAG IV SCH (23:00)
[2019-01-26] MEDS: APIXABAN 5 MG TAB PO SCH (23:12)
[2019-01-26] MEDS: ATENOLOL 50 MG TAB PO SCH (23:35)
[2019-01-26 23:55] LABS: BUN/Creatinine Ratio 13; Blood Urea Nitrogen 10 mg/dL (7-17); Calcium 9.9 mg/dL (8.4-10.2); Hemolysis Index 47
[2019-01-27] MEDS ORDERED: PROMETHAZINE 25 MG TAB PO PRN (01:16)
[2019-01-27] MEDS ORDERED: MORPHINE 4 MG/1 ML INJ IV ONE (03:33)
[2019-01-27 05:31] LABS: BUN/Creatinine Ratio 13; Blood Urea Nitrogen 9 mg/dL (7-17); Calcium 9.4 mg/dL (8.4-10.2); Hemolysis Index 72
[2019-01-27] MEDS: HYDROmorphone 2 MG TAB PO SCH ×3 (07:27→21:38)
[2019-01-27] MEDS ORDERED: HYDROMORPHONE HCL 8 MG PO SCH (08:00)
[2019-01-27] MEDS ORDERED: NITROGLYCERIN 0.4 MG TAB SUBL SL PRN (08:02)
[2019-01-27] MEDS ORDERED: DEXTROSE 50% IN WATER (25GM) 50 ML SYRINGE IV PRN (08:09)
[2019-01-27] MEDS: ARFORMOTEROL 15 MCG/2 ML NEBU IH SCH ×2 (08:21→21:10)
[2019-01-27] MEDS: BUDESONIDE 0.5 MG/2 ML NEBU IH SCH ×2 (08:21→21:10)
[2019-01-27] MEDS ORDERED: INSULIN REGULAR, HUMAN 100 UNITS/1 ML SUB-Q ONE (09:00)
[2019-01-27] MEDS: ALPRAZolam 1 MG TAB PO SCH (09:20)
[2019-01-27] MEDS: APIXABAN 5 MG TAB PO SCH ×2 (09:21→21:37)
[2019-01-27] MEDS: FUROSEMIDE 40 MG TAB PO SCH (09:22)
[2019-01-27] MEDS: FAMOTIDINE 20 MG TAB PO SCH (09:22)
[2019-01-27] MEDS: hydrALAZINE 10 MG TAB PO SCH ×2 (09:23→21:39)
[2019-01-27] MEDS: ATENOLOL 50 MG TAB PO SCH ×2 (09:24→21:39)
[2019-01-27] MEDS: LOSARTAN 50 MG TAB PO SCH (09:30)
[2019-01-27] MEDS ORDERED: NON-FORMULARY EACH (Alprazolam [Xanax Tab] 2 MG) PO SCH (10:00)
[2019-01-27] MEDS ORDERED: GABAPENTIN 300 MG CAP PO SCH (10:00)
[2019-01-27] MEDS ORDERED: NON-FORMULARY EACH (Famotidine [Pepcid] 40 MG) PO SCH (10:00)
[2019-01-27] MEDS ORDERED: NON-FORMULARY EACH (Losartan [Cozaar] 100 MG) PO SCH (10:00)
[2019-01-27] MEDS ORDERED: NON-FORMULARY EACH (Atenolol [Tenormin] 100 MG) PO SCH (10:00)
[2019-01-27] MEDS ORDERED: TIOTROPIUM 18 MCG CAP INHALATION IH SCH (10:00)
[2019-01-27] MEDS: INSULIN LISPRO 100 UNIT/ML SUB-Q SCH ×3 (13:30→22:58)
[2019-01-27 14:20] LABS: BUN/Creatinine Ratio 10; Blood Urea Nitrogen 8 mg/dL (7-17); Calcium 9.3 mg/dL (8.4-10.2); Hemolysis Index 19
[2019-01-27] MEDS ORDERED: SODIUM CHLORIDE 0.9% 500 ML 500 ML IV ONE (17:23)
--- NOTE | 2019-01-27 17:23 | Progress Note ---
Assessment and Plan Assessment and plan: 54 YO Female with DM complicated by Gastroparesis, HTN, Seizure Disorder, COPD, Asthma, Seizure Disorder, DVT/PE on Therapeutic Anticoagulation, PUD, Breast Cancer presents to ED for evaluation. Pt states that her blood glucose levels have been very high over the past several days. Pt also reports productive cough with green sputum, as well as nasal congestion. Pt also reports chest discomfort after her coughing episodes. Pt transported to [facility] via private vehicle. Pt seen and evaluated in ED and found to have DKA and initiated on insulin drip and admitted to ICU. Pt denies fever, chills, CP, Palpitations, Syncope, BRBPR, Unintentional weight loss, night sweats, or recent ill contacts. Prior admission on 11/27/18 reviewed. All listed medication reconciled at time of admission. (1) DKA (diabetic ketoacidoses) Current Visit: Yes Status: Acute Qualifiers: Diabetes mellitus type: type 2 Diabetes mellitus complication detail: without coma Qualified Code(s): E11.10 - Type 2 diabetes mellitus with ketoacidosis without coma Plan to address problem: Resolved. Transferred to the floor Resume home insulin She promises to be more complaint. (2) Bronchitis Current Visit: Yes Status: Acute Plan to address problem: supplemental oxygen, nebulizer therapy, supportive care, (3) COPD (chronic obstructive pulmonary disease) Current Visit: Yes Status: Acute Qualifiers: Emphysema type: unspecified Plan to address problem: supplemental oxygen, nebulizer therapy, pulmonary toilet. (4) History of DVT (deep vein thrombosis) Current Visit: Yes Status: Acute Plan to address problem: continue therapeutic anticoagualtion. (5) Hx of pulmonary embolus Current Visit: No Status: Acute Plan to address problem: continue therapeutic anticoagulation (6) DVT prophylaxis Current Visit: Yes Status: Acute Plan to address problem: SCD to BLE while in bed, continue therapeutic anticoagulation. History Interval history: Patient seen and examined, no new complaints. Reports that she has chronic pain syndrom secondary to malignancy now in remission. Hospitalist Physical - Physical exam Narrative exam: General appearance: Present: No distress - EENT Eyes: Present: PERRL ENT: hearing intact, clear oral mucosa - Neck Neck: Present: supple, normal ROM - Respiratory Respiratory effort: normal Respiratory: bilateral: CTA - Cardiovascular Heart Sounds: Present: S1 & S2. Absent: rub, click - Extremities Extremities: pulses symmetrical, No edema Peripheral Pulses: within normal limits - Abdominal General gastrointestinal: Present: soft, non-tender, non-distended, normal bowel sounds Female genitourinary: Present: normal - Integumentary Integumentary: Present: clear, warm, dry - Musculoskeletal Musculoskeletal: gait normal, strength equal bilaterally - Psychiatric Psychiatric: appropriate mood/affect, intact judgment & insight - Neurologic Neurologic: CNII-XII intact, moves all extremities - Constitutional Vitals: Temp Pulse Resp BP Pulse Ox 98.4 F 78 18 123/82 95 01/27/19 17:00 01/27/19 17:00 01/27/19 17:00 01/27/19 17:00 01/27/19 17:00 General appearance: Present: mild distress Results - Labs CBC & Chem 7: 01/28/19 04:42 01/28/19 04:42 Labs: Laboratory Last Values WBC 6.3 K/mm3 (4.5-11.0) 01/26/19 16:12 RBC 5.60 M/mm3 (3.65-5.03) H 01/26/19 16:12 Hgb 14.6 gm/dl (10.1-14.3) H 01/26/19 16:12 Hct 44.8 % (30.3-42.9) H 01/26/19 16:12 MCV 80 fl (79-97) 01/26/19 16:12 MCH 26 pg (28-32) L 01/26/19 16:12 MCHC 33 % (30-34) 01/26/19 16:12 RDW 15.6 % (13.2-15.2) H 01/26/19 16:12 Plt Count 287 K/mm3 (140-440) 01/26/19 16:12 D-Dimer 474.96 ng/mlDDU (0-234) H 01/26/19 19:59 VBG pH 7.439 (7.320-7.420) H 01/26/19 17:43 Sodium 131 mmol/L (137-145) L 01/27/19 13:24 Potassium 4.3 mmol/L (3.6-5.0) 01/27/19 13:24 Chloride 97.6 mmol/L (98-107) L 01/27/19 13:24 Carbon Dioxide 18 mmol/L (22-30) L 01/27/19 13:24 Anion Gap 20 mmol/L 01/27/19 13:24 BUN 8 mg/dL (7-17) 01/27/19 13:24 Creatinine 0.8 mg/dL (0.7-1.2) 01/27/19 13:24 Estimated GFR > 60 ml/min 01/27/19 13:24 BUN/Creatinine Ratio 10 % 01/27/19 13:24 Glucose 326 mg/dL (65-100) H 01/27/19 13:24 POC Glucose 393 (70-105) H 01/27/19 17:07 Calcium 9.3 mg/dL (8.4-10.2) 01/27/19 13:24 Phosphorus 3.30 mg/dL (2.5-4.5) 01/26/19 19:59 Magnesium 2.10 mg/dL (1.7-2.3) 01/26/19 19:59 Total Bilirubin 0.20 mg/dL (0.1-1.2) 01/26/19 17:43 AST 26 units/L (5-40) 01/26/19 17:43 ALT 22 units/L (7-56) 01/26/19 17:43 Alkaline Phosphatase 159 units/L (35-129) H 01/26/19 17:43 Troponin T < 0.010 ng/mL (0.00-0.029) 01/27/19 04:34 Total Protein 8.5 g/dL (6.3-8.2) H 01/26/19 17:43 Albumin 4.1 g/dL (3.9-5) 01/26/19 17:43 Albumin/Globulin Ratio 0.9 % 01/26/19 17:43 Active Medications - Current Medications Current Medications: Generic Name Dose Route Start Last Admin Trade Name Freq PRN Reason Stop Dose Admin Alprazolam 2 mg 01/27/19 10:00 01/27/19 09:20 Xanax PO 2 mg BID MOIZ Administration Apixaban 5 mg 01/26/19 22:00 01/27/19 09:21 Eliquis PO 5 mg BID MOIZ Administration Protocol Arformoterol Tartrate 15 mcg 01/26/19 20:00 01/27/19 08:21 Brovana Nebu IH 15 mcg Q12HRT MOIZ Administration Atenolol 100 mg 01/26/19 22:00 01/27/19 09:24 Tenormin PO 100 mg BID MOIZ Administration Budesonide 0.5 mg 01/26/19 20:00 01/27/19 08:21 Pulmicort IH 0.5 mg Q12HRT MOIZ Administration Dextrose 0 ml 01/26/19 18:43 D50w (25gm) Syringe IV Q30MIN PRN Hypoglycemia Famotidine 40 mg 01/27/19 10:00 01/27/19 09:22 Pepcid PO 40 mg DAILY MOIZ Administration Furosemide 40 mg 01/27/19 10:00 01/27/19 09:22 Lasix PO 40 mg QDAY MOIZ Administration Hydralazine HCl 20 mg 01/27/19 10:00 01/27/19 09:23 Apresoline PO 20 mg BID MOIZ Administration Hydromorphone HCl 8 mg 01/27/19 08:00 01/27/19 13:48 Dilaudid PO 8 mg TID MOIZ Administration Insulin Glargine 20 units 01/27/19 22:00 Lantus SUB-Q QHS [facility] Insulin Human Lispro 0 unit 01/27/19 11:30 01/27/19 13:30 Humalog SUB-Q 4 unit ACHS [facility] Administration Protocol Losartan Potassium 100 mg 01/27/19 10:00 01/27/19 09:30 Cozaar PO 100 mg QDAY MOIZ Administration Nitroglycerin 0.4 mg 01/27/19 08:02 01/27/19 08:31 Nitrostat SL 0.4 mg .Q5MIN PRN Administration Chest Pain Promethazine HCl 25 mg 01/27/19 01:16 01/27/19 07:30 Phenergan PO 25 mg Q6HR PRN Administration Nausea Quetiapine Fumarate 600 mg 01/27/19 22:00 Seroquel PO QHS [facility] Sodium Chloride 10 ml 01/26/19 22:00 01/27/19 09:31 Sodium Chloride Flush Syringe 10 Ml IV 10 ml BID MOIZ Administration Sodium Chloride 10 ml 01/26/19 19:03 Sodium Chloride Flush Syringe 10 Ml IV PRN PRN LINE FLUSH
[2019-01-27 19:38] LABS: BUN/Creatinine Ratio 13; Blood Urea Nitrogen 10 mg/dL (7-17); Calcium 8.9 mg/dL (8.4-10.2)
[2019-01-27 19:52] LABS: Hemolysis Index 55
[2019-01-27] MEDS ORDERED: QUEtiapine 200 MG TAB PO SCH (22:00)
[2019-01-27] MEDS ORDERED: INSULIN GLARGINE 100 UNITS/ML SUB-Q SCH (22:00)
[2019-01-27] MEDS ORDERED: QUETIAPINE FUMARATE 600 MG PO SCH (22:00)
[2019-01-28] MEDS: ALPRAZolam 1 MG TAB PO SCH ×2 (00:14→10:58)
[2019-01-28 05:42] LABS: Hematocrit 41.7 % (30.3-42.9); Hemoglobin 13.7 gm/dl (10.1-14.3); Mean Corpuscular HGB Conc 33 % (30-34); Mean Corpuscular Volume 80 fl (79-97); Platelet Count 257 K/mm3 (140-440); Red Blood Count 5.19 M/mm3 (3.65-5.03); Red Cell Distribution Width 15.5 % (13.2-15.2)
[2019-01-28 06:16] LABS: Calcium 9.2 mg/dL (8.4-10.2)
[2019-01-28] MEDS: INSULIN LISPRO 100 UNIT/ML SUB-Q SCH ×3 (08:46→15:30)
[2019-01-28] MEDS: ARFORMOTEROL 15 MCG/2 ML NEBU IH SCH (09:22)
[2019-01-28] MEDS: BUDESONIDE 0.5 MG/2 ML NEBU IH SCH (09:22)
[2019-01-28] MEDS ORDERED: INSULIN REGULAR, HUMAN 100 UNITS/1 ML SUB-Q ONE (09:30)
--- NOTE | 2019-01-28 10:07 | Discharge Summary ---
Providers - Providers Date of Admission: 01/26/19 19:03 Attending physician: MARIUM CHAUHAN MD Primary care physician: HISTORICAL INTERPRETER Hospitalization Reason for admission: dka Condition: Stable Hospital course: 54 YO Female with DM complicated by Gastroparesis, HTN, Seizure Disorder, COPD, Asthma, Seizure Disorder, DVT/PE on Therapeutic Anticoagulation, PUD, Breast Cancer presents to ED for evaluation. Pt states that her blood glucose levels have been very high over the past several days. Pt also reports productive cough with green sputum, as well as nasal congestion. Pt also reports chest discomfort after her coughing episodes. Pt transported to [facility] via private vehicle. Pt seen and evaluated in ED and found to have DKA and initiated on insulin drip and admitted to ICU. Pt denies fever, chills, CP, Palpitations, Syncope, BRBPR, Unintentional weight loss, night sweats, or recent ill contacts. Prior admission on 11/27/18 reviewed. All listed medication reconciled at time of admission. (1) DKA (diabetic ketoacidoses) Current Visit: Yes Status: Acute Qualifiers: Diabetes mellitus type: type 2 Diabetes mellitus complication detail: without coma Qualified Code(s): E11.10 - Type 2 diabetes mellitus with keto acidosis without coma Plan to address problem: counselling provided to patient. She promises to be more complaint. (2) Bronchitis Current Visit: Yes Status: Acute Plan to address problem: supplemental oxygen, nebulizer therapy, supportive care, (3) COPD (chronic obstructive pulmonary disease) Current Visit: Yes Status: Acute Qualifiers: Emphysema type: unspecified Plan to address problem: supplemental oxygen, nebulizer therapy, pulmonary toilet. (4) History of DVT (deep vein thrombosis) Current Visit: Yes Status: Acute Plan to address problem: continue therapeutic anticoagualtion. (5) Hx of pulmonary embolus Current Visit: No Status: Acute Plan to address problem: continue therapeutic anticoagulation Disposition: DC-01 TO HOME OR SELFCARE Time spent for discharge: 35 mins Core Measure Documentation - Palliative Care Palliative Care/ Comfort Measures: Not Applicable - Core Measures Any of the following diagnoses?: none Exam - Physical Exam Narrative exam: General appearance: Present: No distress - EENT Eyes: Present: PERRL ENT: hearing intact, clear oral mucosa - Neck Neck: Present: supple, normal ROM - Respiratory Respiratory effort: normal Respiratory: bilateral: CTA - Cardiovascular Heart Sounds: Present: S1 & S2. Absent: rub, click - Extremities Extremities: pulses symmetrical, No edema Peripheral Pulses: within normal limits - Abdominal General gastrointestinal: Present: soft, non-tender, non-distended, normal bowel sounds Female genitourinary: Present: normal - Integumentary Integumentary: Present: clear, warm, dry - Musculoskeletal Musculoskeletal: gait normal, strength equal bilaterally - Psychiatric Psychiatric: appropriate mood/affect, intact judgment & insight - Neurologic Neurologic: CNII-XII intact, moves all extremities - Constitutional Vitals: Temp Pulse Resp BP Pulse Ox 97.9 F 75 18 90/52 98 01/28/19 07:53 01/28/19 09:23 01/28/19 09:23 01/28/19 07:53 01/28/19 09:22 Plan Activity: advance as tolerated, fall precautions Diet: diabetic Special Instructions: record daily BP diary, record blood sugar diary Care Plan Goals: take insulin as adjusted Plan of Treatment: better control of DM Health Concerns: diabetic related complications Follow up with: PRIMARY CARE, [Primary Care Provider] - 3-5 Days
[2019-01-28] MEDS: HYDROmorphone 2 MG TAB PO SCH (10:56)
[2019-01-28] MEDS: APIXABAN 5 MG TAB PO SCH (10:58)
[2019-01-28] MEDS: FAMOTIDINE 20 MG TAB PO SCH (10:58)
[2019-01-28] MEDS: FUROSEMIDE 40 MG TAB PO SCH (10:58)
[2019-01-28] MEDS: LOSARTAN 50 MG TAB PO SCH (11:05)
[2019-01-28] MEDS: ATENOLOL 50 MG TAB PO SCH (11:05)
[2019-01-28] MEDS: hydrALAZINE 10 MG TAB PO SCH (11:06)
[2019-01-28 12:02] VITALS: BP 91/50
== END 2019-01-28 17:00 | disposition home or self-care (01) | DRG 639 ==
LOC: ED 14:58 → CC1 19:03 → 4A 01-27 10:55
PROVIDERS: ADMIT Internal Medicine; ATTEND Internal Medicine
PROC: 5A09357 Assistance with Respiratory Ventilation, Less than 24 Consecutive Hours, Continuous Positive Airway Pressure (ICD-10-PCS; principal; 2019-01-27)
DX: E11.10 Type 2 diabetes mellitus with ketoacidosis without coma (principal); I11.0 Hypertensive heart disease with heart failure; J44.9 Chronic obstructive pulmonary disease, unspecified; J40 Bronchitis, not specified as acute or chronic; E11.43 Type 2 diabetes mellitus with diabetic autonomic (poly)neuropathy; K31.84 Gastroparesis; G40.909 Epilepsy, unspecified, not intractable, without status epilepticus; I50.9 Heart failure, unspecified; Z79.4 Long term (current) use of insulin; Z79.899 Other long term (current) drug therapy; Z88.1 Allergy status to other antibiotic agents; Z88.0 Allergy status to penicillin; Z88.8 Allergy status to other drugs, medicaments and biological substances; Z86.718 Personal history of other venous thrombosis and embolism; Z79.01 Long term (current) use of anticoagulants; Z86.711 Personal history of pulmonary embolism; Z90.13 Acquired absence of bilateral breasts and nipples; Z87.11 Personal history of peptic ulcer disease; Z91.19 Patient's noncompliance with other medical treatment and regimen; Z90.49 Acquired absence of other specified parts of digestive tract; Z82.49 Family history of ischemic heart disease and other diseases of the circulatory system; Z83.3 Family history of diabetes mellitus
CPT/HCPCS: 36415; 71045; 80048; 80053; 82805; 82962; 83735; 84100; 84484; 85027; 85379; 93005; 93010; 94640; 94660; 96365; 96375; G0378; J1170; J1815; J2270; J7030; J7040; Q0169

== ENCOUNTER 2019-01-29 17:51 | Emergency (ER) | payer OTHER ==
[2019-01-29 18:24] VITALS: BP 163/95
--- NOTE | 2019-01-29 18:25 | Event Note ---
ED Screening Note Date of service: 01/29/19 Time: 18:24 ED Screening Note: This is a 54 y.o. F. that presents to the ER with weakness. Patient states she feel the same way she felt Thursday night when she was admitted for DKA. Reports abdominal pain and headache. This initial assessment/diagnostic orders/clinical plan/treatment(s) is/are subject to change based on patients health status, clinical progression and re- assessment by fellow clinical providers in the ED. Further treatment and workup at subsequent clinical providers discretion. Patient/guardian urged not to elope from the ED as their condition may be serious if not clinically assessed and managed. Initial orders include: Labs
== END 2019-01-30 07:00 | disposition left against medical advice (07) ==
LOC: ED 17:51
DX: R53.83 Other fatigue (principal); Z53.21 Procedure and treatment not carried out due to patient leaving prior to being seen by health care provider
CPT/HCPCS: 82962